=== PATIENT | female | born 1945 | race Caucasian/White ===

== ENCOUNTER 2018-09-21 12:15 | Inpatient (IN) | payer MEDICARE, OTHER ==
--- NOTE | 2018-09-21 13:07 | ED Physician Chart ---
ED Chief Complaint/HPI - Patient Information Date Seen:: 09/21/18 Time Seen:: 12:55 Chief Complaint:: increased agitation History of Present Illness:: On the transfer documented states patient has been increasingly agitated with aggressive behavior toward the staff, wondering inside the facility and with episodes of not taking medications and not eating meals and exhibiting mood swings. Patient states the large bruise on her right arm is from a blood draw 2 days ago. Allergies:: Allergies Allergy/AdvReac Type Severity Reaction Status Date / Time carbidopa Allergy Verified 09/21/18 12:22 diazepam Allergy Verified 09/21/18 12:29 haloperidol Allergy Verified 09/21/18 12:21 levodopa Allergy Verified 09/21/18 12:21 tizanidine Allergy Verified 09/21/18 12:29 zolpidem Allergy Verified 09/21/18 12:21 Vitals:: Vital Signs - 8 hr 09/21/18 12:22 Temp 97.3 F HR 85 RR 18 BP 119/87 O2 Sat % 96 Historian:: Patient Review:: Transfer documents Reviewed ED Review of Systems - Review of Systems General/Constitutional: No fever, No chills Skin: No skin lesions Head: No headache Eyes: No loss of vision ENT: No earache Neck: No neck pain, No swelling Cardio Vascular: No chest pain Pulmonary: No SOB GI: No nausea, No vomiting, No diarrhea G/U: No dysuria Musculoskeletal: No bone or joint pain, No back pain, No muscle pain Hematopoietic: No bruising Allergic/Immuno: No urticaria Neurological: No syncope, No focal symptoms, No weakness ED Past Medical History - Past Medical History Past Medical History: HTN, DM, Other (bipolar; psychosis) Family History: Heart disease, Diabetes Melitus, HTN Social History: Non Smoker, Other (formerly consumed alcohol) Surgical History: other (ligation) Psychiatricy History: Bipolar, Other (psychosis) Family Medical History - Family Member Mother History Unknown: Yes ED Physical Exam - Physical Examination General/Constitutional: Awake, Well-developed, well-nourished, Alert, No distress, GCS 15, Non-toxic appearing, Ambulatory Other Gen/Cons comments:: Alert and oriented to the correct month and year and to the approximate date Head: Atraumatic Eyes: Lids, conjuctiva normal, PERRL, EOMI Skin: Nl inspection, No rash, No skin lesions, No ecchymosis, Well hydrated, No lymphadenopathy ENMT: External ears, nose nl, Nasal exam nl, Lips, teeth, gums nl Neck: Nontender, Full ROM w/o pain, No JVD, No nuchal rigidity, No bruit, No mass, No stridor Respiratory: Nl effort/Exclusion, Clear to Auscultation, No Wheeze/Rhonchi/Rales Cardio Vascular: RRR, No murmur, gallop, rubs, NL S1 S2 GI: No tenderness/rebounding/guarding, No organomegaly, No hernia, Normal BS's, Nondistended, No mass/bruits, No McBurney tenderness : No CVA tenderness Extremities: No tenderness or effusion, Full ROM, normal strength in all extremities, No edema, Normal digits & nails Neuro/Psych: Alert/oriented, DTR's symmetric, Normal sensory exam, Normal motor strength, Judgement/insight normal, Mood normal, Normal gait, No focal deficits Misc: Normal back, No paraspinal tenderness ED Labs/Radiology/EKG Results - Lab Results Results: Abnormal Lab Results 09/21/18 09/21/18 13:20 13:20 WBC 7.1 RBC 4.71 Hgb 14.0 Hct 42.6 MCV 90.4 MCH 29.7 MCHC Differential 32.8 RDW 12.9 Plt Count 218 MPV 7.6 Neutrophils % 82.0 H Lymphocytes % 9.5 L Monocytes % 7.7 Eosinophils % 0.6 Basophils % 0.2 Sodium 139 Potassium 4.1 Chloride 103 Carbon Dioxide 27.0 Anion Gap 13.1 BUN 21 Creatinine 0.5 L Est GFR ( Amer) TNP Est GFR (Non-Af Amer) TNP BUN/Creatinine Ratio 42.0 Glucose 227 H Calcium 8.9 Total Bilirubin 0.4 AST 14 ALT 14 Alkaline Phosphatase 105 H Total Protein 6.2 Albumin 3.6 L Globulin 2.6 Albumin/Globulin Ratio 1.4 Triglycerides 94 Cholesterol 175 LDL Cholesterol Direct 112 HDL Cholesterol 53 - EKG Interpretations Rate & Rhythm: normal sinus rhythm with a rate [place]: of 75 Comments:: T wave changes in leads V1 and V2 ED Septic Shock - . Is Septic Shock (SBP<90, OR Lactate>4 mmol\L) present?: No - <6hrs of presentation: Vital Signs: Vital Signs - 8 hr 09/21/18 12:22 Temp 97.3 F HR 85 RR 18 BP 119/87 O2 Sat % 96 ED Reassessment (Disposition) - Reassessment Reassessment Condition:: Unchanged - Diagnosis Diagnosis:: Agitation; bipolar; psychosis; diabetes; Parkinson's disease - Patient Disposition Admitted to:: [facility] Admitting Medical Physician:: Tani Tolentino Admitting Psych Physician:: Tomás Waddell Condition at Disposition:: Stable, Unchanged
[2018-09-21 13:28] LABS: % BASOPHILS 0.2 % (0.0-2.0); % EOSINOPHILS 0.6 % (0.0-5.0); % LYMPHOCYTES 9.5 % (20.0-50.0); % MONOCYTES 7.7 % (2.0-10.0); HEMATOCRIT 42.6 % (41.0-60); LYMPHOCYTE ABSOLUTE 0.7 Th/cmm (1.5-3.0); MEAN CELL VOLUME 90.4 fl (81-100); MEAN CORPUSCULAR HEMOGLOBIN 29.7 pg (27.0-31.0); MEAN CORPUSCULAR HGB CONC 32.8 pg (28.0-36.0); MEAN PLATELET VOLUME 7.6 fl; MONOCYTE ABSOLUTE 0.5 Th/cmm (0.3-1.0); NEUTROPHILE ABSOLUTE 5.9 Th/cmm (1.8-8.0); PLATELET COUNT 218 Th/cmm (150-400); RED BLOOD COUNT 4.71 Mil/cmm (3.80-5.20); RED CELL DISTRIBUTION WIDTH 12.9 % (11.5-20.0); WHITE BLOOD COUNT 7.1 Th/cmm (4.8-10.8)
[2018-09-21 13:47] LABS: ALB/GLOB RATIO 1.4 (1.0-1.8); ALBUMIN 3.6 gm/dL (3.7-5.3); ALKALINE PHOSPHATASE 105 U/L (34-104); ANION GAP 13.1 (7.0-16.0); BILIRUBIN,TOTAL 0.4 mg/dL (0.3-1.0); BUN - UREA NITROGEN 21 mg/dL (7-25); CALCIUM SERUM 8.9 mg/dL (8.6-10.3); CHLORIDE 103 mEq/L (98-107); CHOLESTEROL 175 mg/dL (<200); CREATININE - SERUM 0.5 mg/dL (0.6-1.2); GLUCOSE 227 mg/dL (70-105); HDL -HIGH DENSITY LIPOPROTEIN 53 mg/dL (23-92); POTASSIUM SERUM 4.1 mEq/L (3.5-5.1); SGOT 14 U/L (13-39); SGPT/ALT 14 U/L (7-52); SODIUM SERUM 139 mEq/L (136-145); TOTAL PROTEIN,SERUM 6.2 gm/dL (6.0-8.3); TRIGLYCERIDES 94 mg/dL (<150)
[2018-09-21 15:15] VITALS: BP 124/71
[2018-09-21] MEDS ORDERED: Magnesium Hydroxide (MOM) 30 mL UDC PO PRN (15:15)
[2018-09-21] MEDS ORDERED: PRAMIPEXOLE DI HCL PO SCH (21:00)
[2018-09-21] MEDS: INSULIN ASPART SLIDING SCALE 100 UNITS/ML UNIT SUBQ SCH (21:13)
[2018-09-22] MEDS: Pantoprazole 40 mg EC Tab PO SCH ×2 (06:35→06:40)
[2018-09-22] MEDS: INSULIN ASPART SLIDING SCALE 100 UNITS/ML UNIT SUBQ SCH ×4 (06:36→20:52)
[2018-09-22] MEDS: Multivitamin Tab PO SCH (08:40)
[2018-09-22] MEDS: Ferrous Sulfate 325 MG TAB PO SCH (08:42)
[2018-09-22] MEDS ORDERED: VALPROIC ACID PO SCH (09:00)
--- NOTE | 2018-09-23 02:38 | Consultation ---
DATE OF CONSULTATION: INTERNAL MEDICINE CONSULT REFERRING MD: Dr. Dominguez. REASON FOR CONSULT: Medical management. HISTORY OF PRESENT ILLNESS: 73-year-old lady with multiple medical problems including type 2 diabetes, essential hypertension, multiple sclerosis, previous pancreatitis, anemia, history of peptic ulcer disease, Parkinson's disease, ataxia, history of colon diverticulitis, hiatal hernia, generalized muscle weakness, acid reflux disease as well as hypothyroidism, who was admitted to the [facility] given psych decompensation with increased agitation. The patient is currently sitting in a Rosmery chair and appears to be comfortable. She states that "she does not feel well.'' It appears that she points to her hands that apparently, she had blood work recently and there is a noticeable bruising, but other than that, she denies any significant issues such as fever, chills, headaches, shortness of breath, cough or phlegm production. PAST MEDICAL HISTORY: As noted above. PAST SURGERIES: Tubal ligation. FAMILY HISTORY: Likely noncontributory to this admission. SOCIAL HISTORY: No tobacco, no ETOH or illicit drug usage. She lives at [facility]. ALLERGIES: CARBIDOPA, DIAZEPAM, HALDOL, LEVODOPA, TIZANIDINE, AND ZOLDIPEM. OUTPATIENT MEDICATIONS: Glycerin p.r.n. per rectum, amlodipine 10 mg daily, baclofen 10 mg t.i.d., iron sulfate 75 mg q. day, gabapentin 300 mg b.i.d., glipizide 5 mg b.i.d., Romulus q. 8 hours p.r.n. for severe pain, insulin sliding scale per protocol, Glucophage 500 mg t.i.d., omeprazole 40 mg q. day, Zofran 4 mg p.r.n. for nausea, vomiting, Mirapex 0.125 mg t.i.d., valproic acid 250 b.i.d. REVIEW OF SYSTEMS: GENERAL: No fever or chills. No recent weight loss. CARDIOVASCULAR: No chest pain or palpitations. PULMONARY: Denies any cough, any phlegm production, no shortness of breath. GASTROINTESTINAL: No bowel habit changes. GENITOURINARY: Denies any UTI symptomatology. NEUROLOGIC: Denies any syncopal episodes, blurry vision, or headaches. PHYSICAL EXAMINATION: VITAL SIGNS: Temperature 98.6, pulse 62, respirations 19; BP 109/66 yesterday, currently is 165/64; O2 sats 97% on room air. GENERAL: Well-developed, thin female who is awake, alert and oriented x 2 and appears to be in no distress. HEAD AND NECK: Normocephalic, atraumatic. Pupils reactive to light. Extraocular movements are intact. Oropharynx is moist and clear. NECK: There is no JVD or LAD. CARDIAC: Regular rate and rhythm with distant sounds. No audible murmurs. LUNGS: Diminished at the bases, but no audible rhonchi, wheezing, or crackles. ABDOMEN: Soft, supple, nontender, nondistended, normoactive bowel sounds. EXTREMITIES: Lower extremity, there is no pedal edema. SKIN: There is some bruising noted on her left upper dorsum. NEURO: Difficult to assess given patient's condition, but cranial nerves 2-12 appear to be within normal limits. LABORATORY DATA: CBC was within normal limits. Chem-7 showed a glucose of 227, otherwise was within normal limits. LFTs essentially within normal limits. TSH 8.33. DIAGNOSTICS: EKG shows normal sinus rhythm at a rate of 75. ASSESSMENT: 1. Acute agitation/psych decompensation. 2. History of bipolar disorder. 3. Type 2 diabetes. 4. Essential hypertension. 5. History of Parkinson's disease. 6. Ataxia. 7. Previous history of hypothyroidism with an elevated TSH level. 8. Generalized muscle weakness. 9. Acid reflux disease. 10. Diverticulitis, currently asymptomatic. 11. History of peptic ulcer disease. PLAN: The patient has been admitted to [facility] for psych supportive care and treatment. The patient will be kept on her current home medications including her diabetes medications (glipizide 5 mg with meals and metformin 500 mg t.i.d.). As far as hypertension, she is on amlodipine 10 mg q. day and will be placed on clonidine p.r.n. JOB# [id number] [facility]
[2018-09-23] MEDS: Pantoprazole 40 mg EC Tab PO SCH (06:35)
[2018-09-23] MEDS: INSULIN ASPART SLIDING SCALE 100 UNITS/ML UNIT SUBQ SCH ×5 (06:35→21:22)
[2018-09-23] MEDS: Levothyroxine 0.025 Mg Tab PO SCH (06:35)
[2018-09-23] MEDS: Multivitamin Tab PO SCH (09:48)
[2018-09-23] MEDS: Ferrous Sulfate 325 MG TAB PO SCH (09:48)
[2018-09-23] MEDS: Hydrocodone/APAP 5mg/325mg Tab PO PRN (21:27)
--- NOTE | 2018-09-24 06:51 | Progress Notes ---
DATE: The patient was seen and evaluated. The patient's chart reviewed. COVERING FOR: Dr. Taylor. IDENTIFYING DATA: A 73-year-old female with a history of multiple medical comorbidities, brought in here for acute agitation, disorganized thought process. CURRENT MEDICATION REGIMEN: Includes the following: Amlodipine, baclofen, gabapentin 300 mg p.o. b.i.d., levothyroxine, metformin. Today on modo-eg-nrar evaluation, the patient is sleepy, easily awakened. Upon awaking, the patient disengaged, minimizing, does not give much information, derails. MENTAL STATUS EXAMINATION: Observed to be disorganized, confused. ASSESSMENT AND PLAN: The patient is a 73-year-old female who continues to present overwhelmed, extremely poor historian, unable to give much information with a history of dementia and behavioral disturbances. We will augment the current medication regimen with Aricept while we obtain more collateral and baseline information. JOB# [id number]
[2018-09-24] MEDS: INSULIN ASPART SLIDING SCALE 100 UNITS/ML UNIT SUBQ SCH ×4 (06:59→20:45)
[2018-09-24] MEDS: Levothyroxine 0.025 Mg Tab PO SCH (07:00)
[2018-09-24] MEDS: Pantoprazole 40 mg EC Tab PO SCH (07:00)
--- NOTE | 2018-09-24 08:09 | Psychiatric Evaluation ---
DATE OF SERVICE: 09/21/2018 PSYCHIATRIC INITIAL EVALUATION AND MENTAL STATUS EXAM Age: 73. SEX: Female. PHYSICIAN: Dr. Taylor. CHIEF COMPLAINT: Agitation and confusion. HISTORY OF PRESENT ILLNESS: The patient is a 73-year-old female who was admitted to the hospital under my care from [facility] after I received a call from the DON where informing me about patient has been extremely agitated and has been in irritable and angry mood. The patient also has not been able to follow any directions and has been more anxious and more confused. She also has not been able to calm down in spite of different interventions. PAST PSYCHIATRIC HISTORY: The patient has history of what seems to be bipolar disorder. The patient has been taking Depakene 250 mg twice a day. PAST MEDICAL HISTORY: The patient has history of noninsulin dependent diabetes mellitus and also has a history of gastroesophageal reflux disease. SOCIAL HISTORY: No known alcohol or drug use. ALLERGIES: No known allergies. MENTAL STATUS EXAMINATION: The patient appears slightly older than her stated age. Disheveled. Anxious. Flat affect. Irritable mood. Confused. Thought processes are circumstantial with flight of ideas. The patient denies any auditory or visual hallucinations or delusions. The patient denies any thoughts of suicide or homicide, but she is confused and easily agitated and easily irritable. The patient is alert, but disoriented to time, place, person and situation. Impaired immediate and recent memory is not intact, remote memory and she remembered her date. Poor insight. Poor judgment. ASSESSMENT: PRIMARY DIAGNOSIS: Bipolar disorder, mixed type, severe, with psychotic features. SECONDARY DIAGNOSIS: Dementia, moderate to severe, with psychotic features and behavioral disturbances. TREATMENT PLAN: We will monitor the patient's behavior and condition closely. We will start individual as well as milieu psychotherapy. We will monitor psychotropic medications. ESTIMATED LENGTH OF STAY: 5-7 days. THE PATIENT'S STRENGTHS AND WEAKNESSES: The patient's strength is that she has supportive staff in [facility]. Weaknesses is her poor impulse control and poor judgment. AFTER DISCHARGE PLAN: Outpatient treatment and followup. We will continue as an outpatient. CRITERIA FOR DISCHARGE: The patient will not be psychotic or agitated and will stabilize psychotropic medications and will establish outpatient treatment plans. JOB# [id number]
[2018-09-24] MEDS: Ferrous Sulfate 325 MG TAB PO SCH (09:55)
[2018-09-24] MEDS: Multivitamin Tab PO SCH (09:56)
--- NOTE | 2018-09-24 20:31 | Progress Notes ---
DATE: SUBJECTIVE: The patient was seen and evaluated. The patient's chart reviewed. Overnight nursing staff reported the patient has been disengaged. Today, on scpz-be-cldu evaluation extremely irritable, reporting "who are you" multiple times despite introducing myself as a psychiatrist, she becomes more irritable and anxious. MENTAL STATUS EXAMINATION: Anxious, irritable, agitated. PLAN: The patient had a history of dementia who will be receiving her first dose of the Aricept presents irritable, agitated. We will continue with Depakote to target the patient's ____ mood while we obtain more collateral baseline information and continue working with emergency medical technician basic for a safe disposition once the patient further stabilized. JOB# [id number]
[2018-09-25] MEDS: Pantoprazole 40 mg EC Tab PO SCH (06:32)
[2018-09-25] MEDS: Levothyroxine 0.025 Mg Tab PO SCH (06:32)
[2018-09-25] MEDS: INSULIN ASPART SLIDING SCALE 100 UNITS/ML UNIT SUBQ SCH ×4 (06:32→20:31)
[2018-09-25] MEDS: Multivitamin Tab PO SCH ×2 (08:58→09:28)
[2018-09-25] MEDS: Ferrous Sulfate 325 MG TAB PO SCH ×2 (08:58→09:28)
[2018-09-25] MEDS: MELATONIN 5 MG PO SCH (20:31)
[2018-09-25] MEDS: Hydrocodone/APAP 5mg/325mg Tab PO PRN (20:50)
--- NOTE | 2018-09-26 05:23 | Progress Notes ---
DATE: SUBJECTIVE: Chart reviewed and the patient interviewed. Also discussed the patient's condition with the staff and reviewed records and labs. The patient is still extremely delusional and extremely paranoid. The patient also is agitated. The patient was whispering at times to me and she also at times was talking to imaginary objects during interview. She also is still in irritable mood and she is still delusional. ASSESSMENT: The patient is still psychotic. TREATMENT PLAN: We will monitor behavior and condition closely. Also continue working on her irritability and also her psychosis. Also, questionable if the patient is compliant with taking her medication. We will give the patient Depakote on Depakene form for better compliance. [facility]# [id number]
[2018-09-26] MEDS: Pantoprazole 40 mg EC Tab PO SCH (06:38)
[2018-09-26] MEDS: INSULIN ASPART SLIDING SCALE 100 UNITS/ML UNIT SUBQ SCH ×4 (06:38→20:36)
[2018-09-26] MEDS: Levothyroxine 0.025 Mg Tab PO SCH (06:38)
[2018-09-26] MEDS: Multivitamin Tab PO SCH (08:28)
[2018-09-26] MEDS: Ferrous Sulfate 325 MG TAB PO SCH (08:30)
[2018-09-26] MEDS: MELATONIN 5 MG PO SCH (20:37)
--- NOTE | 2018-09-26 22:40 | Progress Notes ---
DATE: SUBJECTIVE: Chart reviewed and the patient interviewed. Also discussed the patient's condition with the staff and reviewed records. The patient is still actively hallucinating and delusional. The patient also was whispering to me in a paranoid way and also was not able to carry on any coherent conversation. The patient also is paranoid and easily agitated and getting aggressive. Otherwise, the patient was questionable taking her medications and she has not been taking medications. Discussed with the patient the importance of taking psychotropic medication and hopefully, we will start to take medications. At the same time, we will continue close observation and will continue to follow up. JOB# [id number]
[2018-09-27] MEDS: INSULIN ASPART SLIDING SCALE 100 UNITS/ML UNIT SUBQ SCH ×4 (06:36→22:11)
[2018-09-27] MEDS: Levothyroxine 0.025 Mg Tab PO SCH (06:37)
[2018-09-27] MEDS: Pantoprazole 40 mg EC Tab PO SCH (06:37)
[2018-09-27] MEDS: Multivitamin Tab PO SCH (08:39)
[2018-09-27] MEDS: Ferrous Sulfate 325 MG TAB PO SCH (08:39)
--- NOTE | 2018-09-27 19:40 | Progress Notes ---
DATE: 09/27/2018 SUBJECTIVE: Chart reviewed and the patient interviewed. Also discussed the patient's condition with the staff and reviewed records and labs. The patient is still psychotic and responding. She also is still easily agitated, but seems to be slightly less than before. The patient also is still talking to herself and whispering and looks like she is communicating with imaginary people. She also is still guarded and does not want to talk about her hallucinations or psychosis. She also still needs lots of redirections. Otherwise, the patient is compliant with taking her medications with no side effects of medications. ASSESSMENT: The patient is still psychotic and needs lots of redirections. TREATMENT PLAN: We will increase Seroquel to 37.5 mg twice a day and 37.5 mg at bedtime and will continue to follow up closely. JOB# [id number]
[2018-09-27] MEDS: MELATONIN 5 MG PO SCH (21:39)
[2018-09-28] MEDS: Levothyroxine 0.025 Mg Tab PO SCH (07:08)
[2018-09-28] MEDS: INSULIN ASPART SLIDING SCALE 100 UNITS/ML UNIT SUBQ SCH ×4 (07:08→21:49)
[2018-09-28] MEDS: Pantoprazole 40 mg EC Tab PO SCH (07:08)
[2018-09-28] MEDS: Ferrous Sulfate 325 MG TAB PO SCH (09:16)
[2018-09-28] MEDS: Multivitamin Tab PO SCH (09:17)
[2018-09-28] MEDS: Insulin Detemir 100 units/mL 10mL Vial SUBQ SCH (12:50)
[2018-09-28] MEDS: Hydrocodone/APAP 5mg/325mg Tab PO PRN (17:46)
[2018-09-28] MEDS: MELATONIN 5 MG PO SCH (21:48)
[2018-09-29] MEDS: Levothyroxine 0.025 Mg Tab PO SCH (06:54)
[2018-09-29] MEDS: Pantoprazole 40 mg EC Tab PO SCH (06:54)
[2018-09-29] MEDS: INSULIN ASPART SLIDING SCALE 100 UNITS/ML UNIT SUBQ SCH ×4 (06:56→21:00)
[2018-09-29] MEDS: Multivitamin Tab PO SCH (09:28)
[2018-09-29] MEDS: Insulin Detemir 100 units/mL 10mL Vial SUBQ SCH (09:29)
[2018-09-29] MEDS: Ferrous Sulfate 325 MG TAB PO SCH (09:29)
[2018-09-29] MEDS: MELATONIN 5 MG PO SCH (21:05)
[2018-09-30] MEDS: INSULIN ASPART SLIDING SCALE 100 UNITS/ML UNIT SUBQ SCH ×4 (06:39→21:24)
[2018-09-30] MEDS: Levothyroxine 0.025 Mg Tab PO SCH (06:39)
[2018-09-30] MEDS: Pantoprazole 40 mg EC Tab PO SCH (06:40)
[2018-09-30] MEDS: Multivitamin Tab PO SCH (09:13)
[2018-09-30] MEDS: Ferrous Sulfate 325 MG TAB PO SCH (09:13)
[2018-09-30] MEDS: Insulin Detemir 100 units/mL 10mL Vial SUBQ SCH (09:14)
--- NOTE | 2018-09-30 18:23 | Progress Notes ---
DATE: 09/30/2018 SUBJECTIVE: The patient coming into the hospital, 73-year-old female coming in from a [facility]. The patient is agitated, irritable, angry, not following any directions, history of what appears to be bipolar. The patient does not know where she is. She states that she is coming from "[place]." She does not know if she is taking any medications. She remains impulsive, unpredictable, withdrawn, mostly keeps to herself, still remains easily agitated. It seems that she may be responding to internal stimuli. ASSESSMENT: The patient remains psychotic, still responding to internal stimuli, unpredictable behaviors. Given recent dose increase of Seroquel, will continue at current dosing, monitor for side effects. JOB# [id number]
[2018-09-30] MEDS: MELATONIN 5 MG PO SCH (21:15)
[2018-10-01] MEDS: INSULIN ASPART SLIDING SCALE 100 UNITS/ML UNIT SUBQ SCH ×4 (06:44→20:40)
[2018-10-01] MEDS: Levothyroxine 0.025 Mg Tab PO SCH (06:50)
[2018-10-01] MEDS: Pantoprazole 40 mg EC Tab PO SCH (06:50)
[2018-10-01] MEDS: Multivitamin Tab PO SCH (10:11)
[2018-10-01] MEDS: Ferrous Sulfate 325 MG TAB PO SCH (10:12)
[2018-10-01] MEDS: Insulin Detemir 100 units/mL 10mL Vial SUBQ SCH ×2 (10:13→20:38)
--- NOTE | 2018-10-01 17:03 | Progress Notes ---
DATE: 10/01/2018 SUBJECTIVE: The patient is currently in the hospital, coming in from [facility]. She is really aggressive right now, responding to internal stimuli, Ativan not helping, requiring emergency IM this morning. Loud, screaming, yelling, not making any sense, confused, and difficult to redirect. ASSESSMENT: The patient aggressive currently in the observation room, yelling to sell screaming to self, wheeling herself around. We will give Zyprexa IM given her allergy status. PLAN: We will increase dosing of Seroquel as well. JOB# [id number]
[2018-10-01 18:24] LABS: URINE SOURCE CLEAN C
[2018-10-01 18:28] LABS: URINE BILIRUBIN NEGATIVE (NEGATIVE); URINE BLOOD SMALL (NEGATIVE); URINE GLUCOSE (UA) >=1000 mg/dL (NEGATIVE); URINE KETONE TRACE mg/dL (NEGATIVE); URINE LEUKOCYTE ESTERASE NEGATIVE (NEGATIVE); URINE MICROSCOPIC INDICATED? YES; URINE NITRATE NEGATIVE (NEGATIVE); URINE PH 6.5 (4.6 - 8.0); URINE PROTEIN NEGATIVE (NEGATIVE); URINE UROBILINOGEN 0.2 E.U./dL (0.2 - 1.0)
[2018-10-01 18:35] LABS: URINE COLOR YELLOW
[2018-10-01 18:36] LABS: URINE CLARITY CLEAR (CLEAR)
[2018-10-01 18:40] LABS: URINE BACTERIA FEW /hpf (NONE SEEN); URINE EPITHELIAL CELLS FEW /lpf (FEW); URINE RBC NONE SEEN /hpf (0-5)
--- NOTE | 2018-10-01 19:58 | Progress Notes ---
DATE: 09/29/2018 DATE OF SERVICE: 09/29/2018. SUBJECTIVE: Chart reviewed and the patient interviewed. Also discussed the patient's condition with the staff and reviewed records and labs. The patient is still in angry and in irritable mood. The patient also is still easily agitated and easily irritable. She also is interacting minimally with peers and with others and wants to be left alone, but at the same time, she is severely agitated and in angry mood. ASSESSMENT: The patient still can be dangerous to others. TREATMENT PLAN: Continue monitoring her behavior and her condition closely. Also, continue adjusting psychotropic medications and yesterday, Seroquel was increased. We will continue same dose of Seroquel and Depakote. Also, we will get Depakote blood level on 10/02/2018. JOB# [id number]
--- NOTE | 2018-10-01 20:35 | Progress Notes ---
DATE: 09/28/2018 SUBJECTIVE: Chart reviewed and the patient interviewed. Also discussed the patient's condition with the staff and reviewed the records and labs. The patient took her medications and the patient seems to be more compliant with taking her medications. She is still having episodes of throwing her clothes and linens outside and also taking off her clothes. The patient also is still easily irritable and easily agitated. Otherwise, the patient is more compliant with taking medications. ASSESSMENT: The patient is still agitated and in irritable mood. TREATMENT PLAN: We will continue to monitor her behavior and her condition closely. Also, increase Seroquel to 50 mg twice a day and 75 mg at bedtime and will increase Depakote to 500 mg twice a day and we will continue to follow up. JOB# [id number]
[2018-10-01] MEDS: MELATONIN 5 MG PO SCH (20:43)
[2018-10-02] MEDS: INSULIN ASPART SLIDING SCALE 100 UNITS/ML UNIT SUBQ SCH ×4 (06:30→20:54)
[2018-10-02] MEDS: Levothyroxine 0.025 Mg Tab PO SCH (06:36)
[2018-10-02] MEDS: Pantoprazole 40 mg EC Tab PO SCH (06:37)
[2018-10-02] MEDS: Ferrous Sulfate 325 MG TAB PO SCH (08:53)
[2018-10-02] MEDS: Multivitamin Tab PO SCH (08:56)
[2018-10-02] MEDS: MELATONIN 5 MG PO SCH (20:53)
[2018-10-02] MEDS: Insulin Detemir 100 units/mL 10mL Vial SUBQ SCH (20:55)
--- NOTE | 2018-10-03 00:55 | Progress Notes ---
DATE: 10/02/2018 Case was discussed with staff of the patient, reviewed records. Covering for Dr. Taylor. This is a 73-year-old female who was admitted on 09/21/2018, because of coming in from [facility]. The patient has been extremely agitated, has been irritable, angry, has not been able to follow any direction, has been more anxious and more confused, has not been able to calm down in spite of different interventions with a history of what seems to be bipolar disorder. The patient continues to be irritable, aggressive, responding to internal stimuli, requiring emergency medication, confused, not making sense. She has been compliant with the medication with no side effects, no sedation, no nausea, and no extrapyramidal symptoms. She is on Aricept 5 mg at bedtime. We will continue to work with the patient in group therapy, milieu therapy, and adjust the medication as needed. JOB# [id number]
[2018-10-03] MEDS: Pantoprazole 40 mg EC Tab PO SCH (06:29)
[2018-10-03] MEDS: Levothyroxine 0.025 Mg Tab PO SCH (06:29)
[2018-10-03] MEDS: INSULIN ASPART SLIDING SCALE 100 UNITS/ML UNIT SUBQ SCH ×5 (06:42→20:33)
[2018-10-03] MEDS: Ferrous Sulfate 325 MG TAB PO SCH (09:14)
[2018-10-03] MEDS: Multivitamin Tab PO SCH (09:14)
--- NOTE | 2018-10-03 20:14 | Progress Notes ---
DATE: 10/03/2018 SUMMARY: Case is discussed with staff of the patient and reviewed records. The patient continues to be irritable, angry, easily agitated, and at times, unable to follow staff direction. She is confused, unable to make safe plan for her self-care. She continues to have episodes of irritability and agitation. She has been compliant with the medication with no side effects. She is also diabetic. Her Seroquel dose was increased in the last 2 days to 100 mg at bedtime and she is on 50 mg twice a day. We will continue to work with the patient in group therapy, milieu therapy, and adjust medication as needed. JOB# [id number]
[2018-10-03] MEDS: Insulin Detemir 100 units/mL 10mL Vial SUBQ SCH (20:33)
[2018-10-03] MEDS: MELATONIN 5 MG PO SCH ×2 (20:33→22:22)
[2018-10-04] MEDS: Levothyroxine 0.025 Mg Tab PO SCH (06:32)
[2018-10-04] MEDS: Pantoprazole 40 mg EC Tab PO SCH (06:32)
[2018-10-04] MEDS: INSULIN ASPART SLIDING SCALE 100 UNITS/ML UNIT SUBQ SCH ×4 (06:36→21:27)
[2018-10-04] MEDS: Multivitamin Tab PO SCH (08:22)
[2018-10-04] MEDS: Ferrous Sulfate 325 MG TAB PO SCH (08:22)
[2018-10-04] MEDS: MELATONIN 5 MG PO SCH (21:22)
[2018-10-04] MEDS: Insulin Detemir 100 units/mL 10mL Vial SUBQ SCH (21:28)
[2018-10-05] MEDS: INSULIN ASPART SLIDING SCALE 100 UNITS/ML UNIT SUBQ SCH ×4 (06:31→21:15)
[2018-10-05] MEDS: Levothyroxine 0.025 Mg Tab PO SCH (06:35)
[2018-10-05] MEDS: Pantoprazole 40 mg EC Tab PO SCH (06:35)
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
[2018-10-05] MEDS: Ferrous Sulfate 325 MG TAB PO SCH (09:07)
[2018-10-05] MEDS: Multivitamin Tab PO SCH (09:07)
[2018-10-05] MEDS: MELATONIN 5 MG PO SCH (21:02)
[2018-10-05] MEDS: Insulin Detemir 100 units/mL 10mL Vial SUBQ SCH (21:15)
--- NOTE | 2018-10-06 01:57 | Progress Notes ---
DATE: 10/05/2018 SUBJECTIVE: Chart reviewed and the patient interviewed. Also, discussed the patient's condition with the staff and reviewed records and labs. The patient is still paranoid and still confused. The patient also is still guarded and is impulsive. The patient also is still stealing objects from nurses' station or other times taking it by force and hiding it in between her clothes or hoarding it in her room. She also is still unable to follow direction easily and staff has to redirect her at all the time. The patient also still gets aggressive when staff tried to redirect her, and yesterday, the patient had to take emergency medications in order to calm her down. ASSESSMENT: The patient is still aggressive and agitated. TREATMENT PLAN: Continue to monitor her behavior closely. Also, we will increase Seroquel to 150 mg twice a day and 200 mg at bedtime. Also, Depakote blood level that was done on 10/02/2018 came back to be 44.5, which is slightly below therapeutic level, but at the same time, we will continue monitoring behavior and might increase Depakote if behavior continues. Today, I increased Seroquel. JOB# [id number]
[2018-10-06] MEDS: Pantoprazole 40 mg EC Tab PO SCH (06:35)
[2018-10-06] MEDS: Levothyroxine 0.025 Mg Tab PO SCH (06:35)
[2018-10-06] MEDS: INSULIN ASPART SLIDING SCALE 100 UNITS/ML UNIT SUBQ SCH ×5 (06:58→20:36)
[2018-10-06] MEDS ORDERED: Haloperidol Lactate 5 mg/mL 1mL Vial ONE (07:33)
[2018-10-06] MEDS ORDERED: Haloperidol Lactate 5 mg/mL 1mL Vial IM ONE (07:56)
[2018-10-06] MEDS: Ferrous Sulfate 325 MG TAB PO SCH (11:03)
[2018-10-06] MEDS: Multivitamin Tab PO SCH (11:04)
[2018-10-06] MEDS: MELATONIN 5 MG PO SCH (20:35)
[2018-10-06] MEDS: Insulin Detemir 100 units/mL 10mL Vial SUBQ SCH (20:37)
[2018-10-07] MEDS: INSULIN ASPART SLIDING SCALE 100 UNITS/ML UNIT SUBQ SCH ×4 (06:31→21:52)
[2018-10-07] MEDS: Levothyroxine 0.025 Mg Tab PO SCH (06:32)
[2018-10-07] MEDS: Pantoprazole 40 mg EC Tab PO SCH (06:32)
[2018-10-07] MEDS: Ferrous Sulfate 325 MG TAB PO SCH (08:49)
[2018-10-07] MEDS: Multivitamin Tab PO SCH (08:51)
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
[2018-10-07] MEDS: MELATONIN 5 MG PO SCH (21:08)
[2018-10-07] MEDS: Insulin Detemir 100 units/mL 10mL Vial SUBQ SCH (21:52)
[2018-10-08] MEDS: Maalox 30 mL Cup PO PRN (06:35)
[2018-10-08] MEDS: Pantoprazole 40 mg EC Tab PO SCH (06:36)
[2018-10-08] MEDS: Levothyroxine 0.025 Mg Tab PO SCH (06:36)
[2018-10-08] MEDS: INSULIN ASPART SLIDING SCALE 100 UNITS/ML UNIT SUBQ SCH ×4 (06:53→21:37)
--- NOTE | 2018-10-08 07:50 | Progress Notes ---
DATE: 10/07/2018 SUBJECTIVE: Chart reviewed and the patient interviewed. Also discussed the patient's condition with the staff and reviewed records and labs. The patient is still extremely agitated and she is pulling posters from the wall and picking trash from other people's rooms. The patient also is putting heavy lotion all over her body and her body looks white from the lotion that she is putting on her face. She also is still impulsive and she is still pushing other patients and also yesterday she refused morning medications. She also was extremely agitated and she was given Haldol ____ and Benadryl on emergency basis. ASSESSMENT: The patient is still psychotic and agitated. TREATMENT PLAN: Continue monitoring her behavior and her condition closely. Also, we will increase Seroquel to 200 mg twice a day and 300 mg at bedtime and we will continue to follow up closely. [facility]# [id number]
[2018-10-08] MEDS: Ferrous Sulfate 325 MG TAB PO SCH (09:20)
[2018-10-08] MEDS: Multivitamin Tab PO SCH (09:20)
[2018-10-08] MEDS: MELATONIN 5 MG PO SCH (21:14)
[2018-10-08] MEDS: Insulin Detemir 100 units/mL 10mL Vial SUBQ SCH (21:35)
--- NOTE | 2018-10-09 05:50 | Progress Notes ---
DATE: SUBJECTIVE: Chart reviewed and the patient interviewed. Also discussed the patient's condition with the staff and reviewed records and labs. The patient continued to be agitated, but seems to be slightly calmer than before. She is still acting bizarre in the unit and needs lots of redirections. The patient also is still intrusive to others and has episodes of irritability and pushing others, but not as much. The patient also is compliant with taking medications with no side effects of medications. ASSESSMENT: The patient seems to be less agitated and less irritable. TREATMENT PLAN: We will continue to monitor her behavior and her condition closely. Also, continue adjusting psychotropic medications and work on behavioral modifications. Also, working on placement. JOB# [id number]
[2018-10-09] MEDS: Levothyroxine 0.025 Mg Tab PO SCH (06:41)
[2018-10-09] MEDS: Pantoprazole 40 mg EC Tab PO SCH (06:41)
[2018-10-09] MEDS: INSULIN ASPART SLIDING SCALE 100 UNITS/ML UNIT SUBQ SCH ×4 (06:47→21:41)
[2018-10-09] MEDS: Multivitamin Tab PO SCH (09:11)
[2018-10-09] MEDS: Ferrous Sulfate 325 MG TAB PO SCH (09:11)
[2018-10-09] MEDS: OLANZapine 5 mg Oral Disintegrating Tab PO SCH ×2 (09:13→18:47)
--- NOTE | 2018-10-09 09:16 | Progress Notes ---
DATE: 10/09/2018 Chart reviewed and the patient interviewed. Also discussed the patient's condition with the staff and reviewed records and labs. The patient is still in angry and in irritable mood. The patient also is still suspicious and is paranoid and impulsive. The patient also earlier today through paper clip towards one of the nurses. She also still has bizarre behavior and the patient is getting into other patient's rooms and stealing clothes and then bring it to her room and wear it. She has been changing her clothes every half hour according to staff. The patient also still needs lots of redirections and she still gets agitated when staff redirected her. Otherwise, the patient is compliant with taking medications with no side effect of medications. ASSESSMENT: The patient is still agitated and in irritable mood and needs close monitoring. TREATMENT PLAN: Seroquel was increased to 200 mg twice a day and 300 mg at bedtime, yet she is still agitated and it seems that Seroquel has not been helping her much. She also taking Depakote in a dose of 1300 mg every day, but also still have mood swings. Depakote level that was done 10/02/2018 was 44.5 and will repeat Depakote blood level today. She also is taking Aricept and gabapentin. We will increase gabapentin 200 mg 3 times a day. Also, we will gradually change Seroquel to Zyprexa and we will start the patient on Zyprexa 5 mg twice a day and will decrease Seroquel to 800 mg twice a day and will start cross titrating Zyprexa and Seroquel. Also, was able to give Seroquel in a dose of 200 mg at bedtime only. Also, continue to work on her severe agitation and on behavioral modification. JOB# [id number]
[2018-10-09] MEDS: Insulin Detemir 100 units/mL 10mL Vial SUBQ SCH (21:41)
[2018-10-09] MEDS: MELATONIN 5 MG PO SCH (21:45)
[2018-10-09] MEDS: Triamcinolone Acet 0.5% Cream 15 gm TP PRN (22:09)
[2018-10-10] MEDS: Pantoprazole 40 mg EC Tab PO SCH (06:31)
[2018-10-10] MEDS: Levothyroxine 0.025 Mg Tab PO SCH (06:31)
[2018-10-10] MEDS: INSULIN ASPART SLIDING SCALE 100 UNITS/ML UNIT SUBQ SCH ×4 (06:32→20:32)
[2018-10-10] MEDS: Multivitamin Tab PO SCH (11:42)
[2018-10-10] MEDS: Ferrous Sulfate 325 MG TAB PO SCH (11:42)
[2018-10-10] MEDS: OLANZapine 5 mg Oral Disintegrating Tab PO SCH ×2 (11:43→18:30)
[2018-10-10] MEDS: MELATONIN 5 MG PO SCH (20:32)
[2018-10-10] MEDS: Insulin Detemir 100 units/mL 10mL Vial SUBQ SCH (20:32)
[2018-10-11] MEDS: INSULIN ASPART SLIDING SCALE 100 UNITS/ML UNIT SUBQ SCH ×5 (06:49→21:42)
[2018-10-11] MEDS: Pantoprazole 40 mg EC Tab PO SCH (06:50)
[2018-10-11] MEDS: Levothyroxine 0.025 Mg Tab PO SCH (06:50)
[2018-10-11] MEDS: Ferrous Sulfate 325 MG TAB PO SCH (09:08)
[2018-10-11] MEDS: Multivitamin Tab PO SCH (09:09)
[2018-10-11] MEDS: Triamcinolone Acet 0.5% Cream 15 gm TP PRN (09:10)
[2018-10-11] MEDS: OLANZapine 5 mg Oral Disintegrating Tab PO SCH ×3 (09:11→17:05)
--- NOTE | 2018-10-11 11:54 | Progress Notes ---
DATE: 10/10/2018 SUBJECTIVE: Chart reviewed and the patient interviewed. Also discussed the patient's condition with the staff and reviewed the records and labs. The patient is still easily agitated and easily irritable, although today, she seems to be slightly calmer than before and she seems to be slightly sedated. The patient also is still restless and is still having severe mood swings. The patient also is still hoarding, although it seems to be slightly less than before and entering into other patient's rooms seems to be less. She is also compliant with taking her medications with no side effects. ASSESSMENT: The patient is still depressed and is still agitated and needs close monitoring. TREATMENT PLAN: I increased her medications yesterday. Continue same dose. Also, continue working on behavioral modification and on discharge plans. JOB# [id number]
--- NOTE | 2018-10-11 21:01 | Progress Notes ---
DATE: 10/11/2018 SUBJECTIVE: Chart reviewed and the patient interviewed. Also, discussed the patient's condition with the staff and reviewed records and labs. The patient is still demanding and is still easily agitated. The patient also is confused and she is in irritable and angry mood. The patient also is still suspicious and is still paranoid. On the other hand behavior problems is dress and her going into other patient's rooms and stealing their clothes and belonging seems to be less than before. Also, slightly easier to follow directions. ASSESSMENT: The patient is still psychotic, but seems to be less and showing improvement. TREATMENT PLAN: Continue current medications and continue monitoring her behavior closely and continue to work on behavioral modification and her irritability. JOB# [id number]
[2018-10-11] MEDS: MELATONIN 5 MG PO SCH (21:37)
[2018-10-11] MEDS: Insulin Detemir 100 units/mL 10mL Vial SUBQ SCH (21:42)
[2018-10-12] MEDS: Pantoprazole 40 mg EC Tab PO SCH (06:48)
[2018-10-12] MEDS: Levothyroxine 0.025 Mg Tab PO SCH (06:48)
[2018-10-12] MEDS: INSULIN ASPART SLIDING SCALE 100 UNITS/ML UNIT SUBQ SCH ×4 (06:48→20:47)
[2018-10-12] MEDS: Multivitamin Tab PO SCH (09:19)
[2018-10-12] MEDS: Ferrous Sulfate 325 MG TAB PO SCH (09:19)
[2018-10-12] MEDS: OLANZapine 5 mg Oral Disintegrating Tab PO SCH (09:20)
--- NOTE | 2018-10-12 13:48 | Internal Medicine Prog Note ---
Internal Medicine Subjective - Subjective Service Date: 10/12/18 Patient is:: asleep Per staff patient has:: no adverse event Internal Medicine Objective - Results Result Diagrams: 09/21/18 13:20 09/21/18 13:20 Recent Labs: Laboratory Last Values WBC 7.1 Th/cmm (4.8-10.8) 09/21/18 13:20 RBC 4.71 Mil/cmm (3.80-5.20) 09/21/18 13:20 Hgb 14.0 gm/dL (12-16) 09/21/18 13:20 Hct 42.6 % (41.0-60) 09/21/18 13:20 MCV 90.4 fl (81-100) 09/21/18 13:20 MCH 29.7 pg (27.0-31.0) 09/21/18 13:20 MCHC Differential 32.8 pg (28.0-36.0) 09/21/18 13:20 RDW 12.9 % (11.5-20.0) 09/21/18 13:20 Plt Count 218 Th/cmm (150-400) 09/21/18 13:20 MPV 7.6 fl 09/21/18 13:20 Neutrophils % 82.0 % (40.0-80.0) H 09/21/18 13:20 Lymphocytes % 9.5 % (20.0-50.0) L 09/21/18 13:20 Monocytes % 7.7 % (2.0-10.0) 09/21/18 13:20 Eosinophils % 0.6 % (0.0-5.0) 09/21/18 13:20 Basophils % 0.2 % (0.0-2.0) 09/21/18 13:20 Sodium 139 mEq/L (136-145) 09/21/18 13:20 Potassium 4.1 mEq/L (3.5-5.1) 09/21/18 13:20 Chloride 103 mEq/L (98-107) 09/21/18 13:20 Carbon Dioxide 27.0 mEq/L (21.0-31.0) 09/21/18 13:20 Anion Gap 13.1 (7.0-16.0) 09/21/18 13:20 BUN 21 mg/dL (7-25) 09/21/18 13:20 Creatinine 0.5 mg/dL (0.6-1.2) L 09/21/18 13:20 Est GFR ( Amer) TNP 09/21/18 13:20 Est GFR (Non-Af Amer) TNP 09/21/18 13:20 BUN/Creatinine Ratio 42.0 09/21/18 13:20 Glucose 227 mg/dL (70-105) H 09/21/18 13:20 POC Glucose 184 MG/DL (70 - 105) H 10/12/18 11:52 Calcium 8.9 mg/dL (8.6-10.3) 09/21/18 13:20 Total Bilirubin 0.4 mg/dL (0.3-1.0) 09/21/18 13:20 AST 14 U/L (13-39) 09/21/18 13:20 ALT 14 U/L (7-52) 09/21/18 13:20 Alkaline Phosphatase 105 U/L (34-104) H 09/21/18 13:20 Total Protein 6.2 gm/dL (6.0-8.3) 09/21/18 13:20 Albumin 3.6 gm/dL (3.7-5.3) L 09/21/18 13:20 Globulin 2.6 gm/dL 09/21/18 13:20 Albumin/Globulin Ratio 1.4 (1.0-1.8) 09/21/18 13:20 Triglycerides 94 mg/dL (<150) 09/21/18 13:20 Cholesterol 175 mg/dL (<200) 09/21/18 13:20 LDL Cholesterol Direct 112 mg/dL (75-193) 09/21/18 13:20 HDL Cholesterol 53 mg/dL (23-92) 09/21/18 13:20 TSH 8.33 uIU/ml (0.34-5.60) H 09/21/18 13:20 Urine Source CLEAN C 10/01/18 16:55 Urine Color YELLOW 10/01/18 16:55 Urine Clarity CLEAR (CLEAR) 10/01/18 16:55 Urine pH 6.5 (4.6 - 8.0) 10/01/18 16:55 Ur Specific [place] 1.015 (1.005-1.030) 10/01/18 16:55 Urine Protein NEGATIVE mg/dL (NEGATIVE) 10/01/18 16:55 Urine Glucose (UA) >=1000 mg/dL (NEGATIVE) H 10/01/18 16:55 Urine Ketones TRACE mg/dL (NEGATIVE) 10/01/18 16:55 Urine Blood SMALL (NEGATIVE) H 10/01/18 16:55 Urine Nitrate NEGATIVE (NEGATIVE) 10/01/18 16:55 Urine Bilirubin NEGATIVE (NEGATIVE) 10/01/18 16:55 Urine Urobilinogen 0.2 E.U./dL (0.2 - 1.0) 10/01/18 16:55 Ur Leukocyte Esterase NEGATIVE (NEGATIVE) 10/01/18 16:55 Urine RBC NONE SEEN /hpf (0-5) 10/01/18 16:55 Urine WBC 2-5 /hpf (0-5) 10/01/18 16:55 Ur Epithelial Cells FEW /lpf (FEW) 10/01/18 16:55 Urine Bacteria FEW /hpf (NONE SEEN) 10/01/18 16:55 Valproic Acid 61.5 ug/mL (50.0-100.0) 10/09/18 07:30 RPR NONREACTIVE (NONREACTIVE) 09/21/18 13:30 - Physical Exam Vitals and I&O: Vital Signs Temp 98 F 10/12/18 06:33 Pulse 70 10/12/18 09:19 Resp 20 10/12/18 06:33 BP 123/67 10/12/18 09:19 Pulse Ox 96 10/12/18 06:33 Intake & Output 10/11/18 10/12/18 10/12/18 18:59 06:59 18:59 Intake Total 120 Balance 120 Intake: Oral 120 Other: # Voids 3 Active Medications: Current Medications Acetaminophen (Tylenol) 650 mg PO Q4HR PRN PRN Reason: Mild Pain / Temp above 100 Stop: 11/20/18 15:14 Last Admin: 10/07/18 03:23 Dose: 650 mg Al Hydrox/Mg Hydrox/Simethicone (Maalox) 30 ml PO Q4HR PRN PRN Reason: GI DISTRESS Stop: 11/20/18 15:14 Last Admin: 10/08/18 06:35 Dose: 30 ml Amlodipine Besylate (Norvasc) 10 mg PO DAILY [place] Stop: 11/21/18 10:59 Last Admin: 10/12/18 09:19 Dose: 10 mg Baclofen (Lioresal) 10 mg PO TID [facility] Stop: 11/20/18 20:59 Last Admin: 10/12/18 09:18 Dose: 10 mg Donepezil HCl (Aricept) 10 mg PO DAILY [facility] Stop: 12/03/18 08:59 Last Admin: 10/12/18 09:23 Dose: Not Given Ferrous Sulfate (Iron) 325 mg PO DAILY [facility] Stop: 11/21/18 08:59 Last Admin: 10/12/18 09:19 Dose: 325 mg Gabapentin (Neurontin) 300 mg PO TID [facility] Stop: 12/08/18 08:59 Last Admin: 10/12/18 09:18 Dose: 300 mg Glipizide (Glucotrol) 10 mg PO BID [facility] Stop: 11/23/18 16:59 Last Admin: 10/12/18 09:18 Dose: 10 mg Insulin Aspart (Novolog Insulin Sliding Scale) 0 units SUBQ ACHS [facility]; Protocol Stop: 11/20/18 20:59 Last Admin: 10/12/18 12:08 Dose: 3 units Insulin Detemir (Levemir Insulin) 12 units SUBQ [facility]; Protocol Stop: 11/30/18 20:59 Last Admin: 10/11/18 21:42 Dose: Not Given Levothyroxine Sodium (Synthroid) 0.025 mg PO QDAC [facility] Stop: 11/22/18 07:29 Last Admin: 10/12/18 06:48 Dose: 0.025 mg Lorazepam (Ativan) 0.5 mg PO Q4HR PRN; Protocol PRN Reason: Agitation Stop: 10/24/18 00:23 Last Admin: 10/12/18 09:22 Dose: 0.5 mg Magnesium Hydroxide (Milk Of Magnesia) 30 ml PO HS PRN PRN Reason: Constipation Metformin HCl (Glucophage) 1,000 mg PO BID [facility] Stop: 11/26/18 09:59 Last Admin: 10/12/18 09:18 Dose: 1,000 mg Multivitamins/Vitamin C (Theragran) 1 tab PO DAILY [facility] Stop: 11/21/18 08:59 Last Admin: 10/12/18 09:19 Dose: 1 tab Ondansetron HCl (Zofran Odt) 4 mg PO TID [facility] Stop: 11/20/18 20:59 Last Admin: 10/12/18 09:19 Dose: 4 mg Pantoprazole Sodium (Protonix) 40 mg PO QDAC [facility] Stop: 11/21/18 07:29 Last Admin: 10/12/18 06:48 Dose: 40 mg Patient Own Med- (Melatonin 5mg Tab) 1 PO HS [facility] Stop: 11/24/18 20:59 Last Admin: 10/11/18 21:37 Dose: 1 Pramipexole Dihydrochloride (Mirapex) 0.125 mg PO TID [facility] Stop: 11/21/18 08:59 Last Admin: 10/12/18 09:19 Dose: 0.125 mg Quetiapine Fumarate (Seroquel) 200 mg PO HS [facility] Stop: 12/08/18 20:59 Last Admin: 10/11/18 21:38 Dose: 200 mg Quetiapine Fumarate (Seroquel) 100 mg PO BID [facility] Stop: 12/08/18 08:59 Last Admin: 10/12/18 09:19 Dose: 100 mg Triamcinolone Acetonide (Kenalog 0.5%) 1 appl TP BID PRN PRN Reason: Rash Stop: 12/08/18 11:19 Last Admin: 10/11/18 09:10 Dose: 1 appl Valproate Sodium (Depakene) 500 mg PO TID [facility]; Protocol Stop: 12/03/18 08:59 Last Admin: 10/12/18 09:22 Dose: Not Given General: demented HEENT: NC/AT, PERRLA, EOMI Neck: Supple, No JVD Lungs: CTAB Cardiovascular: RRR, with murmur Abdomen: soft, non-tender, positive bowel sound Neurological: no change Internal Medicine Assmt/Plan - Assessment Assessment: 1. ACUTE PSYCH DECOMPENSATION 2. HISTORY OD DEMENTIA WITH BEHAVIORAL D/O 3. HISTORY OF PARKINSON'S DISEASE 4. DM-2 5. HX OF ESSENTIAL HTN 6. ATAXIA 7. HX OF HYPOTHYROIDISM 8. HX OF GERD - Plan Plan: CONT WITH CURRENT INPT CARE AND MGT CONT WITH MEDS SCHEDULED CONT WITH GLIPIZIDE/METFORMIN/DETEMIR CONT WITH AMLODIPINE CONT WITH ARICEPT CONT WITH LEVOTHYROXINE CONT WITH PPI NEEDED Nutritional Asmnt/Malnutr-PDOC - Dietary Evaluation Malnutrition Findings (Please click <Entered> for more info): Nutritional Asmnt/Malnutrition Start: 09/22/18 14: 15 Text: Status: Complete Freq: Protocol: Document 09/22/18 14:17 [email or web address] (Rec: 09/22/18 14:24 [email or web address] TAM) Nutritional Asmnt/Malnutrition Patient General Information Nutritional Screening High Risk Diagnosis agitation Pertinent Medical Hx/Surgical Hx HTN, DM, bipolar, psychosis Subjective Information Glucose 227 at admission noted . Pt was seen sitting in adele chair in the dining room at time of visit, confused but able to answer questions. Pt said she was hungry, food preferences taken. Not able to provide diabetic education d/ t pt metnal status. Current Diet Order/ Nutrition Support [facility] soft chopped, ccho 60gm Pertinent Medications maalox, iron, glucotrol, novolog, synthroid, glucotrol, theragran, zofran, protonix Pertinent Labs 09/21 glucose 227, POC 174-288, alb 3.6 Nutritional Hx/Data Height 1.63 m Height (Calculated Centimeters) 162.6 Current Weight (lbs) 52.163 kg Weight (Calculated Kilograms) 52.2 Weight (Calculated Grams) 43015.1 [place] Body Weight 120 Body Mass Index (BMI) 19.7 Weight Status Approriate GI Symptoms GI Symptoms None Last BM not indicated Difficult in: None Food Allergies No Skin Integrity/Comment: area of concern, teetee Vergara Estimated Nutritional Goals BEE in Kcals: Using Current wt Calories/Kcals/Kg 25-30 Kcals Calculated 9956-5681 Protein: Using Current wt Protein g/k Protein Calculated 52 Fluid: ml 7902-9482 (1ml/kcal) Nutritional Problem 1. Problem Problem altered nutrition related labs Etiology hyperglycemia Signs/Symptoms: glucose 227, POC 335, 174, 288 Malnutrition Alert Is there a minimum of two criteria No selected? Query Text:Check all the applicable criteria. A minimum of two criteria are recommended for diagnosis of either severe or non-severe malnutrition. Malnutrition Related to Morbid Obesity Malnutrition related to morbid obesity No Intervention/Recommendation Comments 1. Continue with [facility] soft chopped ccho 60gm diet as ordered. 2. Monitor PO intake, wt, labs and skin integrity 3. F/U as moderate risk in 3-5 days, PO check 09/25 Expected Outcomes/Goals Expected Outcomes/Goals 1. PO intake to meet at least 75% of nutritional needs. 2. Wt stability, skin to remain intact, labs to approach WNL. Reviewed by DANIELLE Love RD
[2018-10-12] MEDS: Insulin Detemir 100 units/mL 10mL Vial SUBQ SCH (20:47)
[2018-10-12] MEDS: MELATONIN 5 MG PO SCH (21:31)
[2018-10-13] MEDS: Levothyroxine 0.025 Mg Tab PO SCH (06:37)
[2018-10-13] MEDS: Pantoprazole 40 mg EC Tab PO SCH (06:37)
[2018-10-13] MEDS: INSULIN ASPART SLIDING SCALE 100 UNITS/ML UNIT SUBQ SCH ×4 (06:38→20:54)
[2018-10-13] MEDS: Ferrous Sulfate 325 MG TAB PO SCH (08:53)
--- NOTE | 2018-10-13 09:36 | Internal Medicine Prog Note ---
Internal Medicine Subjective - Subjective Service Date: 10/13/18 Patient seen and examined:: without staff Patient is:: asleep Per staff patient has:: no adverse event Internal Medicine Objective - Results Result Diagrams: 09/21/18 13:20 09/21/18 13:20 Recent Labs: Laboratory Last Values WBC 7.1 Th/cmm (4.8-10.8) 09/21/18 13:20 RBC 4.71 Mil/cmm (3.80-5.20) 09/21/18 13:20 Hgb 14.0 gm/dL (12-16) 09/21/18 13:20 Hct 42.6 % (41.0-60) 09/21/18 13:20 MCV 90.4 fl (81-100) 09/21/18 13:20 MCH 29.7 pg (27.0-31.0) 09/21/18 13:20 MCHC Differential 32.8 pg (28.0-36.0) 09/21/18 13:20 RDW 12.9 % (11.5-20.0) 09/21/18 13:20 Plt Count 218 Th/cmm (150-400) 09/21/18 13:20 MPV 7.6 fl 09/21/18 13:20 Neutrophils % 82.0 % (40.0-80.0) H 09/21/18 13:20 Lymphocytes % 9.5 % (20.0-50.0) L 09/21/18 13:20 Monocytes % 7.7 % (2.0-10.0) 09/21/18 13:20 Eosinophils % 0.6 % (0.0-5.0) 09/21/18 13:20 Basophils % 0.2 % (0.0-2.0) 09/21/18 13:20 Sodium 139 mEq/L (136-145) 09/21/18 13:20 Potassium 4.1 mEq/L (3.5-5.1) 09/21/18 13:20 Chloride 103 mEq/L (98-107) 09/21/18 13:20 Carbon Dioxide 27.0 mEq/L (21.0-31.0) 09/21/18 13:20 Anion Gap 13.1 (7.0-16.0) 09/21/18 13:20 BUN 21 mg/dL (7-25) 09/21/18 13:20 Creatinine 0.5 mg/dL (0.6-1.2) L 09/21/18 13:20 Est GFR ( Amer) TNP 09/21/18 13:20 Est GFR (Non-Af Amer) TNP 09/21/18 13:20 BUN/Creatinine Ratio 42.0 09/21/18 13:20 Glucose 227 mg/dL (70-105) H 09/21/18 13:20 POC Glucose 138 MG/DL (70 - 105) H 10/13/18 05:56 Calcium 8.9 mg/dL (8.6-10.3) 09/21/18 13:20 Total Bilirubin 0.4 mg/dL (0.3-1.0) 09/21/18 13:20 AST 14 U/L (13-39) 09/21/18 13:20 ALT 14 U/L (7-52) 09/21/18 13:20 Alkaline Phosphatase 105 U/L (34-104) H 09/21/18 13:20 Total Protein 6.2 gm/dL (6.0-8.3) 09/21/18 13:20 Albumin 3.6 gm/dL (3.7-5.3) L 09/21/18 13:20 Globulin 2.6 gm/dL 09/21/18 13:20 Albumin/Globulin Ratio 1.4 (1.0-1.8) 09/21/18 13:20 Triglycerides 94 mg/dL (<150) 09/21/18 13:20 Cholesterol 175 mg/dL (<200) 09/21/18 13:20 LDL Cholesterol Direct 112 mg/dL (75-193) 09/21/18 13:20 HDL Cholesterol 53 mg/dL (23-92) 09/21/18 13:20 TSH 8.33 uIU/ml (0.34-5.60) H 09/21/18 13:20 Urine Source CLEAN C 10/01/18 16:55 Urine Color YELLOW 10/01/18 16:55 Urine Clarity CLEAR (CLEAR) 10/01/18 16:55 Urine pH 6.5 (4.6 - 8.0) 10/01/18 16:55 Ur Specific [place] 1.015 (1.005-1.030) 10/01/18 16:55 Urine Protein NEGATIVE mg/dL (NEGATIVE) 10/01/18 16:55 Urine Glucose (UA) >=1000 mg/dL (NEGATIVE) H 10/01/18 16:55 Urine Ketones TRACE mg/dL (NEGATIVE) 10/01/18 16:55 Urine Blood SMALL (NEGATIVE) H 10/01/18 16:55 Urine Nitrate NEGATIVE (NEGATIVE) 10/01/18 16:55 Urine Bilirubin NEGATIVE (NEGATIVE) 10/01/18 16:55 Urine Urobilinogen 0.2 E.U./dL (0.2 - 1.0) 10/01/18 16:55 Ur Leukocyte Esterase NEGATIVE (NEGATIVE) 10/01/18 16:55 Urine RBC NONE SEEN /hpf (0-5) 10/01/18 16:55 Urine WBC 2-5 /hpf (0-5) 10/01/18 16:55 Ur Epithelial Cells FEW /lpf (FEW) 10/01/18 16:55 Urine Bacteria FEW /hpf (NONE SEEN) 10/01/18 16:55 Valproic Acid 61.5 ug/mL (50.0-100.0) 10/09/18 07:30 RPR NONREACTIVE (NONREACTIVE) 09/21/18 13:30 - Physical Exam Vitals and I&O: Vital Signs Temp 97.1 F 10/13/18 06:44 Pulse 92 10/13/18 06:44 Resp 18 10/13/18 06:44 BP 126/72 10/13/18 06:44 Pulse Ox 98 10/13/18 06:44 Intake & Output 10/12/18 10/13/18 10/13/18 18:59 06:59 18:59 Intake Total 480 Balance 480 Intake: Oral 480 Other: # Voids 2 Active Medications: Current Medications Acetaminophen (Tylenol) 650 mg PO Q4HR PRN PRN Reason: Mild Pain / Temp above 100 Stop: 11/20/18 15:14 Last Admin: 10/07/18 03:23 Dose: 650 mg Al Hydrox/Mg Hydrox/Simethicone (Maalox) 30 ml PO Q4HR PRN PRN Reason: GI DISTRESS Stop: 11/20/18 15:14 Last Admin: 10/08/18 06:35 Dose: 30 ml Amlodipine Besylate (Norvasc) 10 mg PO DAILY [place] Stop: 11/21/18 10:59 Last Admin: 10/12/18 09:19 Dose: 10 mg Baclofen (Lioresal) 10 mg PO TID [facility] Stop: 11/20/18 20:59 Last Admin: 10/13/18 08:52 Dose: 10 mg Donepezil HCl (Aricept) 10 mg PO DAILY [facility] Stop: 12/03/18 08:59 Last Admin: 10/12/18 09:23 Dose: Not Given Ferrous Sulfate (Iron) 325 mg PO DAILY [facility] Stop: 11/21/18 08:59 Last Admin: 10/13/18 08:53 Dose: 325 mg Gabapentin (Neurontin) 300 mg PO TID [facility] Stop: 12/08/18 08:59 Last Admin: 10/12/18 20:31 Dose: 300 mg Glipizide (Glucotrol) 10 mg PO BID [facility] Stop: 11/23/18 16:59 Last Admin: 10/13/18 08:53 Dose: 10 mg Insulin Aspart (Novolog Insulin Sliding Scale) 0 units SUBQ ACHS [facility]; Protocol Stop: 11/20/18 20:59 Last Admin: 10/13/18 06:38 Dose: Not Given Insulin Detemir (Levemir Insulin) 12 units SUBQ [facility]; Protocol Stop: 11/30/18 20:59 Last Admin: 10/12/18 20:47 Dose: 12 units Levothyroxine Sodium (Synthroid) 0.025 mg PO QDAC [facility] Stop: 11/22/18 07:29 Last Admin: 10/13/18 06:37 Dose: 0.025 mg Lorazepam (Ativan) 0.5 mg PO Q4HR PRN; Protocol PRN Reason: Agitation Stop: 10/24/18 00:23 Last Admin: 10/12/18 19:46 Dose: 0.5 mg Magnesium Hydroxide (Milk Of Magnesia) 30 ml PO HS PRN PRN Reason: Constipation Metformin HCl (Glucophage) 1,000 mg PO BID [facility] Stop: 11/26/18 09:59 Last Admin: 10/13/18 08:50 Dose: 1,000 mg Multivitamins/Vitamin C (Theragran) 1 tab PO DAILY [facility] Stop: 11/21/18 08:59 Last Admin: 10/12/18 09:19 Dose: 1 tab Ondansetron HCl (Zofran Odt) 4 mg PO TID [facility] Stop: 11/20/18 20:59 Last Admin: 10/13/18 08:51 Dose: 4 mg Pantoprazole Sodium (Protonix) 40 mg PO QDAC [facility] Stop: 11/21/18 07:29 Last Admin: 10/13/18 06:37 Dose: 40 mg Patient Own Med- (Melatonin 5mg Tab) 1 PO HS [facility] Stop: 11/24/18 20:59 Last Admin: 10/12/18 21:31 Dose: 1 Pramipexole Dihydrochloride (Mirapex) 0.125 mg PO TID [facility] Stop: 11/21/18 08:59 Last Admin: 10/13/18 08:51 Dose: 0.125 mg Quetiapine Fumarate (Seroquel) 200 mg PO HS [facility] Stop: 12/08/18 20:59 Last Admin: 10/12/18 20:32 Dose: 200 mg Quetiapine Fumarate (Seroquel) 100 mg PO BID [facility] Stop: 12/08/18 08:59 Last Admin: 10/13/18 08:52 Dose: 100 mg Triamcinolone Acetonide (Kenalog 0.5%) 1 appl TP BID PRN PRN Reason: Rash Stop: 12/08/18 11:19 Last Admin: 10/11/18 09:10 Dose: 1 appl Valproate Sodium (Depakene) 500 mg PO TID [facility]; Protocol Stop: 12/03/18 08:59 Last Admin: 10/13/18 08:50 Dose: 500 mg General: demented HEENT: NC/AT, PERRLA, EOMI Neck: Supple, No JVD Lungs: CTAB Cardiovascular: RRR, with murmur Abdomen: soft, non-tender, positive bowel sound Neurological: no change Internal Medicine Assmt/Plan - Assessment Assessment: 1. ACUTE PSYCH DECOMPENSATION 2. HISTORY OD DEMENTIA WITH BEHAVIORAL D/O 3. HISTORY OF PARKINSON'S DISEASE 4. DM-2 5. HX OF ESSENTIAL HTN 6. ATAXIA 7. HX OF HYPOTHYROIDISM 8. HX OF GERD - Plan Plan: CONT WITH CURRENT INPT CARE AND MGT CONT WITH MEDS SCHEDULED CONT WITH GLIPIZIDE/METFORMIN/DETEMIR CONT WITH AMLODIPINE CONT WITH ARICEPT CONT WITH LEVOTHYROXINE CONT WITH PPI NEEDED Nutritional Asmnt/Malnutr-PDOC - Dietary Evaluation Malnutrition Findings (Please click <Entered> for more info): Nutritional Asmnt/Malnutrition Start: 09/22/18 14: 15 Text: Status: Complete Freq: Protocol: Document 09/22/18 14:17 [email or web address] (Rec: 09/22/18 14:24 [email or web address] TAM) Nutritional Asmnt/Malnutrition Patient General Information Nutritional Screening High Risk Diagnosis agitation Pertinent Medical Hx/Surgical Hx HTN, DM, bipolar, psychosis Subjective Information Glucose 227 at admission noted . Pt was seen sitting in adele chair in the dining room at time of visit, confused but able to answer questions. Pt said she was hungry, food preferences taken. Not able to provide diabetic education d/ t pt metnal status. Current Diet Order/ Nutrition Support [facility] soft chopped, ccho 60gm Pertinent Medications maalox, iron, glucotrol, novolog, synthroid, glucotrol, theragran, zofran, protonix Pertinent Labs 09/21 glucose 227, POC 174-288, alb 3.6 Nutritional Hx/Data Height 1.63 m Height (Calculated Centimeters) 162.6 Current Weight (lbs) 52.163 kg Weight (Calculated Kilograms) 52.2 Weight (Calculated Grams) 05157.1 [place] Body Weight 120 Body Mass Index (BMI) 19.7 Weight Status Approriate GI Symptoms GI Symptoms None Last BM not indicated Difficult in: None Food Allergies No Skin Integrity/Comment: area of concern, teetee Vergara Estimated Nutritional Goals BEE in Kcals: Using Current wt Calories/Kcals/Kg 25-30 Kcals Calculated 0774-0005 Protein: Using Current wt Protein g/k Protein Calculated 52 Fluid: ml 0689-9027 (1ml/kcal) Nutritional Problem 1. Problem Problem altered nutrition related labs Etiology hyperglycemia Signs/Symptoms: glucose 227, POC 335, 174, 288 Malnutrition Alert Is there a minimum of two criteria No selected? Query Text:Check all the applicable criteria. A minimum of two criteria are recommended for diagnosis of either severe or non-severe malnutrition. Malnutrition Related to Morbid Obesity Malnutrition related to morbid obesity No Intervention/Recommendation Comments 1. Continue with [facility] soft chopped ccho 60gm diet as ordered. 2. Monitor PO intake, wt, labs and skin integrity 3. F/U as moderate risk in 3-5 days, PO check 09/25 Expected Outcomes/Goals Expected Outcomes/Goals 1. PO intake to meet at least 75% of nutritional needs. 2. Wt stability, skin to remain intact, labs to approach WNL. Reviewed by DANIELLE Love RD
[2018-10-13] MEDS: Triamcinolone Acet 0.5% Cream 15 gm TP PRN (09:56)
[2018-10-13] MEDS: Multivitamin Tab PO SCH (14:20)
--- NOTE | 2018-10-13 18:55 | Progress Notes ---
DATE: 10/12/2018 SUBJECTIVE: Chart reviewed and the patient interviewed. Also discussed the patient's condition with the staff and reviewed records and labs. The patient is calm, but the fact that she seems to be slightly sedated today. The patient also is still having episodes of irritability and paranoia, but also it seems easier to redirect her. She also is trying to interact more, but she is still sleepy and seems to be tired. Otherwise, no other side effects of medications. ASSESSMENT: The patient still needs adjustment to her medications. TREATMENT PLAN: Continue to monitor behavior and condition closely. Also, we will start Zyprexa and continue Seroquel and the Depakote. Depakote blood level that was done on 10/09 came back to be 61.5, which is within therapeutic level. Continue same dose and followup. JOB# [id number]
[2018-10-13] MEDS: Insulin Detemir 100 units/mL 10mL Vial SUBQ SCH (20:58)
[2018-10-13] MEDS: MELATONIN 5 MG PO SCH (21:22)
[2018-10-14] MEDS: Pantoprazole 40 mg EC Tab PO SCH (06:37)
[2018-10-14] MEDS: Levothyroxine 0.025 Mg Tab PO SCH (06:37)
[2018-10-14] MEDS: INSULIN ASPART SLIDING SCALE 100 UNITS/ML UNIT SUBQ SCH ×4 (06:44→21:00)
[2018-10-14] MEDS: Multivitamin Tab PO SCH (08:40)
[2018-10-14] MEDS: Ferrous Sulfate 325 MG TAB PO SCH (08:51)
--- NOTE | 2018-10-14 14:40 | General Progress Note ---
Subjective - Review of Systems Service Date: 10/14/18 Subjective: alert, quiet Objective - Results Result Diagrams: 09/21/18 13:20 09/21/18 13:20 Recent Labs: Laboratory Last Values WBC 7.1 Th/cmm (4.8-10.8) 09/21/18 13:20 RBC 4.71 Mil/cmm (3.80-5.20) 09/21/18 13:20 Hgb 14.0 gm/dL (12-16) 09/21/18 13:20 Hct 42.6 % (41.0-60) 09/21/18 13:20 MCV 90.4 fl (81-100) 09/21/18 13:20 MCH 29.7 pg (27.0-31.0) 09/21/18 13:20 MCHC Differential 32.8 pg (28.0-36.0) 09/21/18 13:20 RDW 12.9 % (11.5-20.0) 09/21/18 13:20 Plt Count 218 Th/cmm (150-400) 09/21/18 13:20 MPV 7.6 fl 09/21/18 13:20 Neutrophils % 82.0 % (40.0-80.0) H 09/21/18 13:20 Lymphocytes % 9.5 % (20.0-50.0) L 09/21/18 13:20 Monocytes % 7.7 % (2.0-10.0) 09/21/18 13:20 Eosinophils % 0.6 % (0.0-5.0) 09/21/18 13:20 Basophils % 0.2 % (0.0-2.0) 09/21/18 13:20 Sodium 139 mEq/L (136-145) 09/21/18 13:20 Potassium 4.1 mEq/L (3.5-5.1) 09/21/18 13:20 Chloride 103 mEq/L (98-107) 09/21/18 13:20 Carbon Dioxide 27.0 mEq/L (21.0-31.0) 09/21/18 13:20 Anion Gap 13.1 (7.0-16.0) 09/21/18 13:20 BUN 21 mg/dL (7-25) 09/21/18 13:20 Creatinine 0.5 mg/dL (0.6-1.2) L 09/21/18 13:20 Est GFR ( Amer) TNP 09/21/18 13:20 Est GFR (Non-Af Amer) TNP 09/21/18 13:20 BUN/Creatinine Ratio 42.0 09/21/18 13:20 Glucose 227 mg/dL (70-105) H 09/21/18 13:20 POC Glucose 94 MG/DL (70 - 105) 10/14/18 12:03 Calcium 8.9 mg/dL (8.6-10.3) 09/21/18 13:20 Total Bilirubin 0.4 mg/dL (0.3-1.0) 09/21/18 13:20 AST 14 U/L (13-39) 09/21/18 13:20 ALT 14 U/L (7-52) 09/21/18 13:20 Alkaline Phosphatase 105 U/L (34-104) H 09/21/18 13:20 Total Protein 6.2 gm/dL (6.0-8.3) 09/21/18 13:20 Albumin 3.6 gm/dL (3.7-5.3) L 09/21/18 13:20 Globulin 2.6 gm/dL 09/21/18 13:20 Albumin/Globulin Ratio 1.4 (1.0-1.8) 09/21/18 13:20 Triglycerides 94 mg/dL (<150) 09/21/18 13:20 Cholesterol 175 mg/dL (<200) 09/21/18 13:20 LDL Cholesterol Direct 112 mg/dL (75-193) 09/21/18 13:20 HDL Cholesterol 53 mg/dL (23-92) 09/21/18 13:20 TSH 8.33 uIU/ml (0.34-5.60) H 09/21/18 13:20 Urine Source CLEAN C 10/01/18 16:55 Urine Color YELLOW 10/01/18 16:55 Urine Clarity CLEAR (CLEAR) 10/01/18 16:55 Urine pH 6.5 (4.6 - 8.0) 10/01/18 16:55 Ur Specific [place] 1.015 (1.005-1.030) 10/01/18 16:55 Urine Protein NEGATIVE mg/dL (NEGATIVE) 10/01/18 16:55 Urine Glucose (UA) >=1000 mg/dL (NEGATIVE) H 10/01/18 16:55 Urine Ketones TRACE mg/dL (NEGATIVE) 10/01/18 16:55 Urine Blood SMALL (NEGATIVE) H 10/01/18 16:55 Urine Nitrate NEGATIVE (NEGATIVE) 10/01/18 16:55 Urine Bilirubin NEGATIVE (NEGATIVE) 10/01/18 16:55 Urine Urobilinogen 0.2 E.U./dL (0.2 - 1.0) 10/01/18 16:55 Ur Leukocyte Esterase NEGATIVE (NEGATIVE) 10/01/18 16:55 Urine RBC NONE SEEN /hpf (0-5) 10/01/18 16:55 Urine WBC 2-5 /hpf (0-5) 10/01/18 16:55 Ur Epithelial Cells FEW /lpf (FEW) 10/01/18 16:55 Urine Bacteria FEW /hpf (NONE SEEN) 10/01/18 16:55 Valproic Acid 61.5 ug/mL (50.0-100.0) 10/09/18 07:30 RPR NONREACTIVE (NONREACTIVE) 09/21/18 13:30 - Physical Exam Vitals and I&O: Vital Signs Temp 98.4 F 10/14/18 05:01 Pulse 92 10/14/18 08:42 Resp 20 10/14/18 05:01 BP 126/72 10/14/18 08:42 Pulse Ox 94 10/14/18 05:01 Intake & Output 10/13/18 10/14/18 10/14/18 18:59 06:59 18:59 Intake Total 1000 240 Balance 1000 240 Intake: Oral 1000 240 Other: # Voids 4 2 # Bowel Movements 1 Active Medications: Current Medications Acetaminophen (Tylenol) 650 mg PO Q4HR PRN PRN Reason: Mild Pain / Temp above 100 Stop: 11/20/18 15:14 Last Admin: 10/13/18 20:49 Dose: 650 mg Al Hydrox/Mg Hydrox/Simethicone (Maalox) 30 ml PO Q4HR PRN PRN Reason: GI DISTRESS Stop: 11/20/18 15:14 Last Admin: 10/08/18 06:35 Dose: 30 ml Amlodipine Besylate (Norvasc) 10 mg PO DAILY [place] Stop: 11/21/18 10:59 Last Admin: 10/14/18 08:42 Dose: 10 mg Baclofen (Lioresal) 10 mg PO TID [facility] Stop: 11/20/18 20:59 Last Admin: 10/14/18 13:08 Dose: 10 mg Donepezil HCl (Aricept) 10 mg PO DAILY [facility] Stop: 12/03/18 08:59 Last Admin: 10/14/18 08:40 Dose: 10 mg Ferrous Sulfate (Iron) 325 mg PO DAILY [facility] Stop: 11/21/18 08:59 Last Admin: 10/14/18 08:51 Dose: 325 mg Gabapentin (Neurontin) 300 mg PO TID [facility] Stop: 12/08/18 08:59 Last Admin: 10/14/18 13:08 Dose: 300 mg Glipizide (Glucotrol) 10 mg PO BID [facility] Stop: 11/23/18 16:59 Last Admin: 10/14/18 08:41 Dose: 10 mg Insulin Aspart (Novolog Insulin Sliding Scale) 0 units SUBQ ACHS [facility]; Protocol Stop: 11/20/18 20:59 Last Admin: 10/14/18 12:08 Dose: Not Given Insulin Detemir (Levemir Insulin) 12 units SUBQ HS [facility]; Protocol Stop: 11/30/18 20:59 Last Admin: 10/13/18 20:58 Dose: 12 units Levothyroxine Sodium (Synthroid) 0.025 mg PO QDAC [facility] Stop: 11/22/18 07:29 Last Admin: 10/14/18 06:37 Dose: 0.025 mg Lorazepam (Ativan) 0.5 mg PO Q4HR PRN; Protocol PRN Reason: Agitation Stop: 10/24/18 00:23 Last Admin: 10/14/18 10:34 Dose: 0.5 mg Magnesium Hydroxide (Milk Of Magnesia) 30 ml PO HS PRN PRN Reason: Constipation Metformin HCl (Glucophage) 1,000 mg PO BID [facility] Stop: 11/26/18 09:59 Last Admin: 10/14/18 08:39 Dose: 1,000 mg Multivitamins/Vitamin C (Theragran) 1 tab PO DAILY [facility] Stop: 11/21/18 08:59 Last Admin: 10/14/18 08:40 Dose: 1 tab Ondansetron HCl (Zofran Odt) 4 mg PO TID [facility] Stop: 11/20/18 20:59 Last Admin: 10/14/18 13:08 Dose: 4 mg Pantoprazole Sodium (Protonix) 40 mg PO QDAC [facility] Stop: 11/21/18 07:29 Last Admin: 10/14/18 06:37 Dose: 40 mg Patient Own Med- (Melatonin 5mg Tab) 1 PO HS [facility] Stop: 11/24/18 20:59 Last Admin: 10/13/18 21:22 Dose: 1 Pramipexole Dihydrochloride (Mirapex) 0.125 mg PO TID [facility] Stop: 11/21/18 08:59 Last Admin: 10/14/18 13:08 Dose: 0.125 mg Quetiapine Fumarate (Seroquel) 200 mg PO HS [facility] Stop: 12/08/18 20:59 Last Admin: 10/13/18 20:50 Dose: 200 mg Quetiapine Fumarate (Seroquel) 100 mg PO BID [facility] Stop: 12/08/18 08:59 Last Admin: 10/14/18 08:42 Dose: 100 mg Triamcinolone Acetonide (Kenalog 0.5%) 1 appl TP BID PRN PRN Reason: Rash Stop: 12/08/18 11:19 Last Admin: 10/13/18 09:56 Dose: 1 appl Valproate Sodium (Depakene) 500 mg PO TID [facility]; Protocol Stop: 12/03/18 08:59 Last Admin: 10/14/18 13:08 Dose: 500 mg General: Alert, No acute distress HEENT: Atraumatic, Mucous membr. moist/pink Neck: Supple, +2 carotid pulse wo bruit Cardiovascular: Regular rate, Normal S1, Normal S2 Lungs: Clear to auscultation Abdomen: Bowel sounds, Soft Extremities: no Edema Neurological: Sensation intact Skin: no Rash Psych/Mental Status: Other (psychosis) Assessment/Plan - Assessment Assessment: Acute Psych Decomp Parkinson's Ds T2DM Ess Htn Ataxia Hypothyroid GERD - Plan Plan: Lab - Result Diagrams 09/21/18 13:20 09/21/18 13:20 Current Medications Acetaminophen (Tylenol) 650 mg PO Q4HR PRN PRN Reason: Mild Pain / Temp above 100 Stop: 11/20/18 15:14 Last Admin: 10/13/18 20:49 Dose: 650 mg Al Hydrox/Mg Hydrox/Simethicone (Maalox) 30 ml PO Q4HR PRN PRN Reason: GI DISTRESS Stop: 11/20/18 15:14 Last Admin: 10/08/18 06:35 Dose: 30 ml Amlodipine Besylate (Norvasc) 10 mg PO DAILY [facility] Stop: 11/21/18 10:59 Last Admin: 10/14/18 08:42 Dose: 10 mg Baclofen (Lioresal) 10 mg PO TID [facility] Stop: 11/20/18 20:59 Last Admin: 10/14/18 13:08 Dose: 10 mg Donepezil HCl (Aricept) 10 mg PO DAILY [facility] Stop: 12/03/18 08:59 Last Admin: 10/14/18 08:40 Dose: 10 mg Ferrous Sulfate (Iron) 325 mg PO DAILY [facility] Stop: 11/21/18 08:59 Last Admin: 10/14/18 08:51 Dose: 325 mg Gabapentin (Neurontin) 300 mg PO TID [facility] Stop: 12/08/18 08:59 Last Admin: 10/14/18 13:08 Dose: 300 mg Glipizide (Glucotrol) 10 mg PO BID [facility] Stop: 11/23/18 16:59 Last Admin: 10/14/18 08:41 Dose: 10 mg Insulin Aspart (Novolog Insulin Sliding Scale) 0 units SUBQ [facility]; Protocol Stop: 11/20/18 20:59 Last Admin: 10/14/18 12:08 Dose: Not Given Insulin Detemir (Levemir Insulin) 12 units SUBQ [facility]; Protocol Stop: 11/30/18 20:59 Last Admin: 10/13/18 20:58 Dose: 12 units Levothyroxine Sodium (Synthroid) 0.025 mg PO QDAC [facility] Stop: 11/22/18 07:29 Last Admin: 10/14/18 06:37 Dose: 0.025 mg Lorazepam (Ativan) 0.5 mg PO Q4HR PRN; Protocol PRN Reason: Agitation Stop: 10/24/18 00:23 Last Admin: 10/14/18 10:34 Dose: 0.5 mg Magnesium Hydroxide (Milk Of Magnesia) 30 ml PO HS PRN PRN Reason: Constipation Metformin HCl (Glucophage) 1,000 mg PO BID [facility] Stop: 11/26/18 09:59 Last Admin: 10/14/18 08:39 Dose: 1,000 mg Multivitamins/Vitamin C (Theragran) 1 tab PO DAILY [facility] Stop: 11/21/18 08:59 Last Admin: 10/14/18 08:40 Dose: 1 tab Ondansetron HCl (Zofran Odt) 4 mg PO TID [facility] Stop: 11/20/18 20:59 Last Admin: 10/14/18 13:08 Dose: 4 mg Pantoprazole Sodium (Protonix) 40 mg PO QDAC [facility] Stop: 11/21/18 07:29 Last Admin: 10/14/18 06:37 Dose: 40 mg Patient Own Med- (Melatonin 5mg Tab) 1 PO HS [facility] Stop: 11/24/18 20:59 Last Admin: 10/13/18 21:22 Dose: 1 Pramipexole Dihydrochloride (Mirapex) 0.125 mg PO TID [facility] Stop: 11/21/18 08:59 Last Admin: 10/14/18 13:08 Dose: 0.125 mg Quetiapine Fumarate (Seroquel) 200 mg PO HS [facility] Stop: 12/08/18 20:59 Last Admin: 10/13/18 20:50 Dose: 200 mg Quetiapine Fumarate (Seroquel) 100 mg PO BID [facility] Stop: 12/08/18 08:59 Last Admin: 10/14/18 08:42 Dose: 100 mg Triamcinolone Acetonide (Kenalog 0.5%) 1 appl TP BID PRN PRN Reason: Rash Stop: 12/08/18 11:19 Last Admin: 10/13/18 09:56 Dose: 1 appl Valproate Sodium (Depakene) 500 mg PO TID [facility]; Protocol Stop: 12/03/18 08:59 Last Admin: 10/14/18 13:08 Dose: 500 mg continue Pych meds BP stable Nutritional Asmnt/Malnutr-PDOC - Dietary Evaluation Malnutrition Findings (Please click <Entered> for more info): Nutritional Asmnt/Malnutrition Start: 09/22/18 14: 15 Text: Status: Complete Freq: Protocol: Document 09/22/18 14:17 [email or web address] (Rec: 09/22/18 14:24 [email or web address] TAM) Nutritional Asmnt/Malnutrition Patient General Information Nutritional Screening High Risk Diagnosis agitation Pertinent Medical Hx/Surgical Hx HTN, DM, bipolar, psychosis Subjective Information Glucose 227 at admission noted . Pt was seen sitting in adele chair in the dining room at time of visit, confused but able to answer questions. Pt said she was hungry, food preferences taken. Not able to provide diabetic education d/ t pt metnal status. Current Diet Order/ Nutrition Support [facility] soft chopped, ccho 60gm Pertinent Medications maalox, iron, glucotrol, novolog, synthroid, glucotrol, theragran, zofran, protonix Pertinent Labs 09/21 glucose 227, POC 174-288, alb 3.6 Nutritional Hx/Data Height 1.63 m Height (Calculated Centimeters) 162.6 Current Weight (lbs) 52.163 kg Weight (Calculated Kilograms) 52.2 Weight (Calculated Grams) 10175.1 [place] Body Weight 120 Body Mass Index (BMI) 19.7 Weight Status Approriate GI Symptoms GI Symptoms None Last BM not indicated Difficult in: None Food Allergies No Skin Integrity/Comment: area of concern, teetee Vergara Estimated Nutritional Goals BEE in Kcals: Using Current wt Calories/Kcals/Kg 25-30 Kcals Calculated 1441-4742 Protein: Using Current wt Protein g/k Protein Calculated 52 Fluid: ml 8197-7101 (1ml/kcal) Nutritional Problem 1. Problem Problem altered nutrition related labs Etiology hyperglycemia Signs/Symptoms: glucose 227, POC 335, 174, 288 Malnutrition Alert Is there a minimum of two criteria No selected? Query Text:Check all the applicable criteria. A minimum of two criteria are recommended for diagnosis of either severe or non-severe malnutrition. Malnutrition Related to Morbid Obesity Malnutrition related to morbid obesity No Intervention/Recommendation Comments 1. Continue with the [facility] soft chopped ccho 60gm diet as ordered. 2. Monitor PO intake, wt, labs and skin integrity 3. F/U as moderate risk in 3-5 days, PO check 09/25 Expected Outcomes/Goals Expected Outcomes/Goals 1. PO intake to meet at least 75% of nutritional needs. 2. Wt stability, skin to remain intact, labs to approach WNL. Reviewed by DANIELLE Love RD
--- NOTE | 2018-10-14 15:29 | Progress Notes ---
DATE: 10/14/2018 Case was discussed with staff of the patient, reviewed records. Covering for Dr. Taylor. This is a well-known case, I am seeing before covering for Dr. Taylor. The patient continues to have episodes of irritability, paranoia. However, she has been easier to redirect. She is interacting more. At times, seeming to be tired. She continues to need medication adjustment. The patient is on Seroquel. The dose was increased to 100 mg twice a day, 200 mg at bedtime and Neurontin 300 mg 3 times a day, iron, Aricept 10 mg at bedtime. She is also on the rest of her medication for medical condition and we will continue the patient in group therapy, milieu therapy, and adjust the medication as needed. JOB# [id number]
--- NOTE | 2018-10-14 16:08 | Progress Notes ---
DATE: 10/13/2018 SUBJECTIVE: Chart reviewed and the patient interviewed. Also discussed the patient's condition with the staff and reviewed records and labs. The patient continued to be easily agitated and she is in irritable mood. The patient is also little suspicious and is still paranoid. She also still entering other patient's rooms and getting their clothes, although she was doing slightly better, but yet started to act out again. The patient also still at times resisting care and she is resisting redirections. Otherwise, the patient is compliant with taking medications and no side effects of medications. ASSESSMENT: The patient is still agitated and needs close monitoring. TREATMENT PLAN: Continue to monitor her behavior and her condition. Also, continue adjusting psychotropic medications and work on behavioral modification. JOB# [id number]
[2018-10-14] MEDS: MELATONIN 5 MG PO SCH (20:45)
[2018-10-14] MEDS: Insulin Detemir 100 units/mL 10mL Vial SUBQ SCH (21:00)
[2018-10-15] MEDS: INSULIN ASPART SLIDING SCALE 100 UNITS/ML UNIT SUBQ SCH ×4 (06:44→21:39)
[2018-10-15] MEDS: Levothyroxine 0.025 Mg Tab PO SCH (06:45)
[2018-10-15] MEDS: Pantoprazole 40 mg EC Tab PO SCH (06:46)
[2018-10-15] MEDS: Multivitamin Tab PO SCH (08:52)
[2018-10-15] MEDS: Ferrous Sulfate 325 MG TAB PO SCH (08:52)
--- NOTE | 2018-10-15 16:28 | General Progress Note ---
Subjective - Review of Systems Service Date: 10/15/18 Subjective: alert, quiet, ambulating Objective - Results Result Diagrams: 09/21/18 13:20 09/21/18 13:20 Recent Labs: Laboratory Last Values WBC 7.1 Th/cmm (4.8-10.8) 09/21/18 13:20 RBC 4.71 Mil/cmm (3.80-5.20) 09/21/18 13:20 Hgb 14.0 gm/dL (12-16) 09/21/18 13:20 Hct 42.6 % (41.0-60) 09/21/18 13:20 MCV 90.4 fl (81-100) 09/21/18 13:20 MCH 29.7 pg (27.0-31.0) 09/21/18 13:20 MCHC Differential 32.8 pg (28.0-36.0) 09/21/18 13:20 RDW 12.9 % (11.5-20.0) 09/21/18 13:20 Plt Count 218 Th/cmm (150-400) 09/21/18 13:20 MPV 7.6 fl 09/21/18 13:20 Neutrophils % 82.0 % (40.0-80.0) H 09/21/18 13:20 Lymphocytes % 9.5 % (20.0-50.0) L 09/21/18 13:20 Monocytes % 7.7 % (2.0-10.0) 09/21/18 13:20 Eosinophils % 0.6 % (0.0-5.0) 09/21/18 13:20 Basophils % 0.2 % (0.0-2.0) 09/21/18 13:20 Sodium 139 mEq/L (136-145) 09/21/18 13:20 Potassium 4.1 mEq/L (3.5-5.1) 09/21/18 13:20 Chloride 103 mEq/L (98-107) 09/21/18 13:20 Carbon Dioxide 27.0 mEq/L (21.0-31.0) 09/21/18 13:20 Anion Gap 13.1 (7.0-16.0) 09/21/18 13:20 BUN 21 mg/dL (7-25) 09/21/18 13:20 Creatinine 0.5 mg/dL (0.6-1.2) L 09/21/18 13:20 Est GFR ( Amer) TNP 09/21/18 13:20 Est GFR (Non-Af Amer) TNP 09/21/18 13:20 BUN/Creatinine Ratio 42.0 09/21/18 13:20 Glucose 227 mg/dL (70-105) H 09/21/18 13:20 POC Glucose 146 MG/DL (70 - 105) H 10/15/18 12:18 Calcium 8.9 mg/dL (8.6-10.3) 09/21/18 13:20 Total Bilirubin 0.4 mg/dL (0.3-1.0) 09/21/18 13:20 AST 14 U/L (13-39) 09/21/18 13:20 ALT 14 U/L (7-52) 09/21/18 13:20 Alkaline Phosphatase 105 U/L (34-104) H 09/21/18 13:20 Total Protein 6.2 gm/dL (6.0-8.3) 09/21/18 13:20 Albumin 3.6 gm/dL (3.7-5.3) L 09/21/18 13:20 Globulin 2.6 gm/dL 09/21/18 13:20 Albumin/Globulin Ratio 1.4 (1.0-1.8) 09/21/18 13:20 Triglycerides 94 mg/dL (<150) 09/21/18 13:20 Cholesterol 175 mg/dL (<200) 09/21/18 13:20 LDL Cholesterol Direct 112 mg/dL (75-193) 09/21/18 13:20 HDL Cholesterol 53 mg/dL (23-92) 09/21/18 13:20 TSH 8.33 uIU/ml (0.34-5.60) H 09/21/18 13:20 Urine Source CLEAN C 10/01/18 16:55 Urine Color YELLOW 10/01/18 16:55 Urine Clarity CLEAR (CLEAR) 10/01/18 16:55 Urine pH 6.5 (4.6 - 8.0) 10/01/18 16:55 Ur Specific [place] 1.015 (1.005-1.030) 10/01/18 16:55 Urine Protein NEGATIVE mg/dL (NEGATIVE) 10/01/18 16:55 Urine Glucose (UA) >=1000 mg/dL (NEGATIVE) H 10/01/18 16:55 Urine Ketones TRACE mg/dL (NEGATIVE) 10/01/18 16:55 Urine Blood SMALL (NEGATIVE) H 10/01/18 16:55 Urine Nitrate NEGATIVE (NEGATIVE) 10/01/18 16:55 Urine Bilirubin NEGATIVE (NEGATIVE) 10/01/18 16:55 Urine Urobilinogen 0.2 E.U./dL (0.2 - 1.0) 10/01/18 16:55 Ur Leukocyte Esterase NEGATIVE (NEGATIVE) 10/01/18 16:55 Urine RBC NONE SEEN /hpf (0-5) 10/01/18 16:55 Urine WBC 2-5 /hpf (0-5) 10/01/18 16:55 Ur Epithelial Cells FEW /lpf (FEW) 10/01/18 16:55 Urine Bacteria FEW /hpf (NONE SEEN) 10/01/18 16:55 Valproic Acid 61.5 ug/mL (50.0-100.0) 10/09/18 07:30 RPR NONREACTIVE (NONREACTIVE) 09/21/18 13:30 - Physical Exam Vitals and I&O: Vital Signs Temp 98.1 F 10/14/18 20:45 Pulse 96 10/15/18 08:53 Resp 19 10/14/18 20:45 BP 108/70 10/15/18 08:53 Pulse Ox 96 10/14/18 20:45 Intake & Output 10/14/18 10/15/18 10/15/18 18:59 06:59 18:59 Intake Total 1550 480 Balance 1550 480 Intake: Oral 1550 480 Other: # Voids 4 1 # Bowel Movements 0 Active Medications: Current Medications Acetaminophen (Tylenol) 650 mg PO Q4HR PRN PRN Reason: Mild Pain / Temp above 100 Stop: 11/20/18 15:14 Last Admin: 10/15/18 09:15 Dose: 650 mg Al Hydrox/Mg Hydrox/Simethicone (Maalox) 30 ml PO Q4HR PRN PRN Reason: GI DISTRESS Stop: 11/20/18 15:14 Last Admin: 10/08/18 06:35 Dose: 30 ml Amlodipine Besylate (Norvasc) 10 mg PO DAILY [place] Stop: 11/21/18 10:59 Last Admin: 10/15/18 08:53 Dose: Not Given Baclofen (Lioresal) 10 mg PO TID [facility] Stop: 11/20/18 20:59 Last Admin: 10/15/18 13:20 Dose: 10 mg Donepezil HCl (Aricept) 10 mg PO DAILY [facility] Stop: 12/03/18 08:59 Last Admin: 10/15/18 08:52 Dose: 10 mg Ferrous Sulfate (Iron) 325 mg PO DAILY [facility] Stop: 11/21/18 08:59 Last Admin: 10/15/18 08:52 Dose: 325 mg Gabapentin (Neurontin) 300 mg PO TID [facility] Stop: 12/08/18 08:59 Last Admin: 10/15/18 13:20 Dose: 300 mg Glipizide (Glucotrol) 10 mg PO BID [facility] Stop: 11/23/18 16:59 Last Admin: 10/15/18 08:53 Dose: 10 mg Insulin Aspart (Novolog Insulin Sliding Scale) 0 units SUBQ ACHS [facility]; Protocol Stop: 11/20/18 20:59 Last Admin: 10/15/18 12:00 Dose: 3 units Insulin Detemir (Levemir Insulin) 12 units SUBQ [facility]; Protocol Stop: 11/30/18 20:59 Last Admin: 10/14/18 21:00 Dose: Not Given Levothyroxine Sodium (Synthroid) 0.025 mg PO QDAC [facility] Stop: 11/22/18 07:29 Last Admin: 10/15/18 06:45 Dose: 0.025 mg Lorazepam (Ativan) 0.5 mg PO Q4HR PRN; Protocol PRN Reason: Agitation Stop: 10/24/18 00:23 Last Admin: 10/14/18 22:08 Dose: 0.5 mg Magnesium Hydroxide (Milk Of Magnesia) 30 ml PO HS PRN PRN Reason: Constipation Metformin HCl (Glucophage) 1,000 mg PO BID [facility] Stop: 11/26/18 09:59 Last Admin: 10/15/18 08:54 Dose: 1,000 mg Multivitamins/Vitamin C (Theragran) 1 tab PO DAILY [facility] Stop: 11/21/18 08:59 Last Admin: 10/15/18 08:52 Dose: 1 tab Ondansetron HCl (Zofran Odt) 4 mg PO TID [facility] Stop: 11/20/18 20:59 Last Admin: 10/15/18 13:20 Dose: 4 mg Pantoprazole Sodium (Protonix) 40 mg PO QDAC [facility] Stop: 11/21/18 07:29 Last Admin: 10/15/18 06:46 Dose: 40 mg Patient Own Med- (Melatonin 5mg Tab) 1 PO HS [facility] Stop: 11/24/18 20:59 Last Admin: 10/14/18 20:45 Dose: 1 Pramipexole Dihydrochloride (Mirapex) 0.125 mg PO TID [facility] Stop: 11/21/18 08:59 Last Admin: 10/15/18 13:20 Dose: 0.125 mg Quetiapine Fumarate (Seroquel) 200 mg PO HS [facility] Stop: 12/08/18 20:59 Last Admin: 10/14/18 20:46 Dose: 200 mg Quetiapine Fumarate (Seroquel) 100 mg PO BID [facility] Stop: 12/08/18 08:59 Last Admin: 10/15/18 08:52 Dose: 100 mg Triamcinolone Acetonide (Kenalog 0.5%) 1 appl TP BID PRN PRN Reason: Rash Stop: 12/08/18 11:19 Last Admin: 10/13/18 09:56 Dose: 1 appl Valproate Sodium (Depakene) 500 mg PO TID [facility]; Protocol Stop: 12/03/18 08:59 Last Admin: 10/15/18 13:20 Dose: 500 mg General: Alert, No acute distress HEENT: Atraumatic, Mucous membr. moist/pink Neck: Supple, +2 carotid pulse wo bruit Cardiovascular: Regular rate, Normal S1, Normal S2 Lungs: Clear to auscultation Abdomen: Bowel sounds, Soft Extremities: no Edema Neurological: Sensation intact Skin: no Rash Psych/Mental Status: Other (psychosis) Assessment/Plan - Assessment Assessment: Acute Psych Decomp Parkinson's Ds T2DM Ess Htn Ataxia Hypothyroid GERD - Plan Plan: Lab - Result Diagrams 09/21/18 13:20 09/21/18 13:20 Current Medications Acetaminophen (Tylenol) 650 mg PO Q4HR PRN PRN Reason: Mild Pain / Temp above 100 Stop: 11/20/18 15:14 Last Admin: 10/13/18 20:49 Dose: 650 mg Al Hydrox/Mg Hydrox/Simethicone (Maalox) 30 ml PO Q4HR PRN PRN Reason: GI DISTRESS Stop: 11/20/18 15:14 Last Admin: 10/08/18 06:35 Dose: 30 ml Amlodipine Besylate (Norvasc) 10 mg PO DAILY [facility] Stop: 11/21/18 10:59 Last Admin: 10/14/18 08:42 Dose: 10 mg Baclofen (Lioresal) 10 mg PO TID [facility] Stop: 11/20/18 20:59 Last Admin: 10/14/18 13:08 Dose: 10 mg Donepezil HCl (Aricept) 10 mg PO DAILY [facility] Stop: 12/03/18 08:59 Last Admin: 10/14/18 08:40 Dose: 10 mg Ferrous Sulfate (Iron) 325 mg PO DAILY [facility] Stop: 11/21/18 08:59 Last Admin: 10/14/18 08:51 Dose: 325 mg Gabapentin (Neurontin) 300 mg PO TID [facility] Stop: 12/08/18 08:59 Last Admin: 10/14/18 13:08 Dose: 300 mg Glipizide (Glucotrol) 10 mg PO BID [facility] Stop: 11/23/18 16:59 Last Admin: 10/14/18 08:41 Dose: 10 mg Insulin Aspart (Novolog Insulin Sliding Scale) 0 units SUBQ ACHS [facility]; Protocol Stop: 11/20/18 20:59 Last Admin: 10/14/18 12:08 Dose: Not Given Insulin Detemir (Levemir Insulin) 12 units SUBQ HS [facility]; Protocol Stop: 11/30/18 20:59 Last Admin: 10/13/18 20:58 Dose: 12 units Levothyroxine Sodium (Synthroid) 0.025 mg PO QDAC [facility] Stop: 11/22/18 07:29 Last Admin: 10/14/18 06:37 Dose: 0.025 mg Lorazepam (Ativan) 0.5 mg PO Q4HR PRN; Protocol PRN Reason: Agitation Stop: 10/24/18 00:23 Last Admin: 10/14/18 10:34 Dose: 0.5 mg Magnesium Hydroxide (Milk Of Magnesia) 30 ml PO HS PRN PRN Reason: Constipation Metformin HCl (Glucophage) 1,000 mg PO BID [facility] Stop: 11/26/18 09:59 Last Admin: 10/14/18 08:39 Dose: 1,000 mg Multivitamins/Vitamin C (Theragran) 1 tab PO DAILY [facility] Stop: 11/21/18 08:59 Last Admin: 10/14/18 08:40 Dose: 1 tab Ondansetron HCl (Zofran Odt) 4 mg PO TID [facility] Stop: 11/20/18 20:59 Last Admin: 10/14/18 13:08 Dose: 4 mg Pantoprazole Sodium (Protonix) 40 mg PO QDAC [facility] Stop: 11/21/18 07:29 Last Admin: 10/14/18 06:37 Dose: 40 mg Patient Own Med- (Melatonin 5mg Tab) 1 PO HS [facility] Stop: 11/24/18 20:59 Last Admin: 10/13/18 21:22 Dose: 1 Pramipexole Dihydrochloride (Mirapex) 0.125 mg PO TID [facility] Stop: 11/21/18 08:59 Last Admin: 10/14/18 13:08 Dose: 0.125 mg Quetiapine Fumarate (Seroquel) 200 mg PO HS [facility] Stop: 12/08/18 20:59 Last Admin: 10/13/18 20:50 Dose: 200 mg Quetiapine Fumarate (Seroquel) 100 mg PO BID [facility] Stop: 12/08/18 08:59 Last Admin: 10/14/18 08:42 Dose: 100 mg Triamcinolone Acetonide (Kenalog 0.5%) 1 appl TP BID PRN PRN Reason: Rash Stop: 12/08/18 11:19 Last Admin: 10/13/18 09:56 Dose: 1 appl Valproate Sodium (Depakene) 500 mg PO TID [facility]; Protocol Stop: 12/03/18 08:59 Last Admin: 10/14/18 13:08 Dose: 500 mg continue Pych meds BP stable Nutritional Asmnt/Malnutr-PDOC - Dietary Evaluation Malnutrition Findings (Please click <Entered> for more info): Nutritional Asmnt/Malnutrition Start: 09/22/18 14: 15 Text: Status: Complete Freq: Protocol: Document 09/22/18 14:17 [email or web address] (Rec: 09/22/18 14:24 [email or web address] TAM) Nutritional Asmnt/Malnutrition Patient General Information Nutritional Screening High Risk Diagnosis agitation Pertinent Medical Hx/Surgical Hx HTN, DM, bipolar, psychosis Subjective Information Glucose 227 at admission noted . Pt was seen sitting in adele chair in the dining room at time of visit, confused but able to answer questions. Pt said she was hungry, food preferences taken. Not able to provide diabetic education d/ t pt metnal status. Current Diet Order/ Nutrition Support [facility] soft chopped, ccho 60gm Pertinent Medications maalox, iron, glucotrol, novolog, synthroid, glucotrol, theragran, zofran, protonix Pertinent Labs 09/21 glucose 227, POC 174-288, alb 3.6 Nutritional Hx/Data Height 1.63 m Height (Calculated Centimeters) 162.6 Current Weight (lbs) 52.163 kg Weight (Calculated Kilograms) 52.2 Weight (Calculated Grams) 18667.1 [place] Body Weight 120 Body Mass Index (BMI) 19.7 Weight Status Approriate GI Symptoms GI Symptoms None Last BM not indicated Difficult in: None Food Allergies No Skin Integrity/Comment: area of concern, teetee Vergara Estimated Nutritional Goals BEE in Kcals: Using Current wt Calories/Kcals/Kg 25-30 Kcals Calculated 4455-0476 Protein: Using Current wt Protein g/k Protein Calculated 52 Fluid: ml 1201-6162 (1ml/kcal) Nutritional Problem 1. Problem Problem altered nutrition related labs Etiology hyperglycemia Signs/Symptoms: glucose 227, POC 335, 174, 288 Malnutrition Alert Is there a minimum of two criteria No selected? Query Text:Check all the applicable criteria. A minimum of two criteria are recommended for diagnosis of either severe or non-severe malnutrition. Malnutrition Related to Morbid Obesity Malnutrition related to morbid obesity No Intervention/Recommendation Comments 1. Continue with [facility] soft chopped ccho 60gm diet as ordered. 2. Monitor PO intake, wt, labs and skin integrity 3. F/U as moderate risk in 3-5 days, PO check 09/25 Expected Outcomes/Goals Expected Outcomes/Goals 1. PO intake to meet at least 75% of nutritional needs. 2. Wt stability, skin to remain intact, labs to approach WNL. Reviewed by DANIELLE Love RD
[2018-10-15] MEDS: Maalox 30 mL Cup PO PRN (16:45)
[2018-10-15] MEDS: MELATONIN 5 MG PO SCH (20:51)
[2018-10-15] MEDS: Insulin Detemir 100 units/mL 10mL Vial SUBQ SCH (21:39)
--- NOTE | 2018-10-16 02:03 | Progress Notes ---
DATE: 10/15/2018 Case was discussed with staff of the patient, reviewed records. Covering for Dr. Taylor. The patient continues to be confused, continues to be irritable, paranoid at times. She is easier to redirect. She is able to feed herself. She tolerated the medication with no side effects, no sedation, no nausea, no extrapyramidal symptoms. We will continue to work with the patient in group therapy, milieu therapy, adjust the medication as needed. JOB# [id number]
[2018-10-16] MEDS: Maalox 30 mL Cup PO PRN ×2 (06:15→14:36)
[2018-10-16] MEDS: Levothyroxine 0.025 Mg Tab PO SCH (06:30)
[2018-10-16] MEDS: INSULIN ASPART SLIDING SCALE 100 UNITS/ML UNIT SUBQ SCH ×5 (06:30→22:01)
[2018-10-16] MEDS: Pantoprazole 40 mg EC Tab PO SCH (06:30)
--- NOTE | 2018-10-16 10:04 | Internal Medicine Prog Note ---
Internal Medicine Subjective - Subjective Service Date: 10/16/18 Patient is:: asleep Per staff patient has:: no adverse event Internal Medicine Objective - Results Result Diagrams: 09/21/18 13:20 09/21/18 13:20 Recent Labs: Laboratory Last Values WBC 7.1 Th/cmm (4.8-10.8) 09/21/18 13:20 RBC 4.71 Mil/cmm (3.80-5.20) 09/21/18 13:20 Hgb 14.0 gm/dL (12-16) 09/21/18 13:20 Hct 42.6 % (41.0-60) 09/21/18 13:20 MCV 90.4 fl (81-100) 09/21/18 13:20 MCH 29.7 pg (27.0-31.0) 09/21/18 13:20 MCHC Differential 32.8 pg (28.0-36.0) 09/21/18 13:20 RDW 12.9 % (11.5-20.0) 09/21/18 13:20 Plt Count 218 Th/cmm (150-400) 09/21/18 13:20 MPV 7.6 fl 09/21/18 13:20 Neutrophils % 82.0 % (40.0-80.0) H 09/21/18 13:20 Lymphocytes % 9.5 % (20.0-50.0) L 09/21/18 13:20 Monocytes % 7.7 % (2.0-10.0) 09/21/18 13:20 Eosinophils % 0.6 % (0.0-5.0) 09/21/18 13:20 Basophils % 0.2 % (0.0-2.0) 09/21/18 13:20 Sodium 139 mEq/L (136-145) 09/21/18 13:20 Potassium 4.1 mEq/L (3.5-5.1) 09/21/18 13:20 Chloride 103 mEq/L (98-107) 09/21/18 13:20 Carbon Dioxide 27.0 mEq/L (21.0-31.0) 09/21/18 13:20 Anion Gap 13.1 (7.0-16.0) 09/21/18 13:20 BUN 21 mg/dL (7-25) 09/21/18 13:20 Creatinine 0.5 mg/dL (0.6-1.2) L 09/21/18 13:20 Est GFR ( Amer) TNP 09/21/18 13:20 Est GFR (Non-Af Amer) TNP 09/21/18 13:20 BUN/Creatinine Ratio 42.0 09/21/18 13:20 Glucose 227 mg/dL (70-105) H 09/21/18 13:20 POC Glucose 89 MG/DL (70 - 105) 10/16/18 06:11 Calcium 8.9 mg/dL (8.6-10.3) 09/21/18 13:20 Total Bilirubin 0.4 mg/dL (0.3-1.0) 09/21/18 13:20 AST 14 U/L (13-39) 09/21/18 13:20 ALT 14 U/L (7-52) 09/21/18 13:20 Alkaline Phosphatase 105 U/L (34-104) H 09/21/18 13:20 Total Protein 6.2 gm/dL (6.0-8.3) 09/21/18 13:20 Albumin 3.6 gm/dL (3.7-5.3) L 09/21/18 13:20 Globulin 2.6 gm/dL 09/21/18 13:20 Albumin/Globulin Ratio 1.4 (1.0-1.8) 09/21/18 13:20 Triglycerides 94 mg/dL (<150) 09/21/18 13:20 Cholesterol 175 mg/dL (<200) 09/21/18 13:20 LDL Cholesterol Direct 112 mg/dL (75-193) 09/21/18 13:20 HDL Cholesterol 53 mg/dL (23-92) 09/21/18 13:20 TSH 8.33 uIU/ml (0.34-5.60) H 09/21/18 13:20 Urine Source CLEAN C 10/01/18 16:55 Urine Color YELLOW 10/01/18 16:55 Urine Clarity CLEAR (CLEAR) 10/01/18 16:55 Urine pH 6.5 (4.6 - 8.0) 10/01/18 16:55 Ur Specific [place] 1.015 (1.005-1.030) 10/01/18 16:55 Urine Protein NEGATIVE mg/dL (NEGATIVE) 10/01/18 16:55 Urine Glucose (UA) >=1000 mg/dL (NEGATIVE) H 10/01/18 16:55 Urine Ketones TRACE mg/dL (NEGATIVE) 10/01/18 16:55 Urine Blood SMALL (NEGATIVE) H 10/01/18 16:55 Urine Nitrate NEGATIVE (NEGATIVE) 10/01/18 16:55 Urine Bilirubin NEGATIVE (NEGATIVE) 10/01/18 16:55 Urine Urobilinogen 0.2 E.U./dL (0.2 - 1.0) 10/01/18 16:55 Ur Leukocyte Esterase NEGATIVE (NEGATIVE) 10/01/18 16:55 Urine RBC NONE SEEN /hpf (0-5) 10/01/18 16:55 Urine WBC 2-5 /hpf (0-5) 10/01/18 16:55 Ur Epithelial Cells FEW /lpf (FEW) 10/01/18 16:55 Urine Bacteria FEW /hpf (NONE SEEN) 10/01/18 16:55 Valproic Acid 61.5 ug/mL (50.0-100.0) 10/09/18 07:30 RPR NONREACTIVE (NONREACTIVE) 09/21/18 13:30 - Physical Exam Vitals and I&O: Vital Signs Temp 99.5 F 10/15/18 20:03 Pulse 97 10/15/18 20:03 Resp 20 10/15/18 20:03 BP 141/80 10/15/18 20:03 Pulse Ox 95 10/15/18 20:03 Intake & Output 10/15/18 10/16/18 10/16/18 18:59 06:59 18:59 Intake Total 120 Balance 120 Intake: Oral 120 Other: # Voids 3 # Bowel Movements 0 Active Medications: Current Medications Acetaminophen (Tylenol) 650 mg PO Q4HR PRN PRN Reason: Mild Pain / Temp above 100 Stop: 11/20/18 15:14 Last Admin: 10/15/18 09:15 Dose: 650 mg Al Hydrox/Mg Hydrox/Simethicone (Maalox) 30 ml PO Q4HR PRN PRN Reason: GI DISTRESS Stop: 11/20/18 15:14 Last Admin: 10/16/18 06:15 Dose: 30 ml Amlodipine Besylate (Norvasc) 10 mg PO DAILY [facility] Stop: 11/21/18 10:59 Last Admin: 10/15/18 08:53 Dose: Not Given Baclofen (Lioresal) 10 mg PO TID [facility] Stop: 11/20/18 20:59 Last Admin: 10/15/18 20:52 Dose: 10 mg Donepezil HCl (Aricept) 10 mg PO DAILY [facility] Stop: 12/03/18 08:59 Last Admin: 10/15/18 08:52 Dose: 10 mg Ferrous Sulfate (Iron) 325 mg PO DAILY [facility] Stop: 11/21/18 08:59 Last Admin: 10/15/18 08:52 Dose: 325 mg Gabapentin (Neurontin) 300 mg PO TID [facility] Stop: 12/08/18 08:59 Last Admin: 10/15/18 20:52 Dose: 300 mg Glipizide (Glucotrol) 10 mg PO BID [facility] Stop: 11/23/18 16:59 Last Admin: 10/15/18 16:41 Dose: 10 mg Insulin Aspart (Novolog Insulin Sliding Scale) 0 units SUBQ ACHS [facility]; Protocol Stop: 11/20/18 20:59 Last Admin: 10/16/18 06:30 Dose: Not Given Insulin Detemir (Levemir Insulin) 12 units SUBQ [facility]; Protocol Stop: 11/30/18 20:59 Last Admin: 10/15/18 21:39 Dose: 12 units Levothyroxine Sodium (Synthroid) 0.025 mg PO QDAC [facility] Stop: 11/22/18 07:29 Last Admin: 10/16/18 06:30 Dose: 0.025 mg Lorazepam (Ativan) 0.5 mg PO Q4HR PRN; Protocol PRN Reason: Agitation Stop: 10/24/18 00:23 Last Admin: 10/15/18 22:42 Dose: 0.5 mg Magnesium Hydroxide (Milk Of Magnesia) 30 ml PO HS PRN PRN Reason: Constipation Metformin HCl (Glucophage) 1,000 mg PO BID [facility] Stop: 11/26/18 09:59 Last Admin: 10/15/18 16:42 Dose: 1,000 mg Multivitamins/Vitamin C (Theragran) 1 tab PO DAILY [facility] Stop: 11/21/18 08:59 Last Admin: 10/15/18 08:52 Dose: 1 tab Ondansetron HCl (Zofran Odt) 4 mg PO TID [facility] Stop: 11/20/18 20:59 Last Admin: 10/15/18 20:52 Dose: 4 mg Pantoprazole Sodium (Protonix) 40 mg PO QDAC [facility] Stop: 11/21/18 07:29 Last Admin: 10/16/18 06:30 Dose: 40 mg Patient Own Med- (Melatonin 5mg Tab) 1 PO HS [facility] Stop: 11/24/18 20:59 Last Admin: 10/15/18 20:51 Dose: 1 Pramipexole Dihydrochloride (Mirapex) 0.125 mg PO TID [facility] Stop: 11/21/18 08:59 Last Admin: 10/15/18 20:52 Dose: 0.125 mg Quetiapine Fumarate (Seroquel) 200 mg PO HS [facility] Stop: 12/08/18 20:59 Last Admin: 10/15/18 20:52 Dose: 200 mg Quetiapine Fumarate (Seroquel) 100 mg PO BID [facility] Stop: 12/08/18 08:59 Last Admin: 10/15/18 16:42 Dose: 100 mg Triamcinolone Acetonide (Kenalog 0.5%) 1 appl TP BID PRN PRN Reason: Rash Stop: 12/08/18 11:19 Last Admin: 10/13/18 09:56 Dose: 1 appl Valproate Sodium (Depakene) 500 mg PO TID [facility]; Protocol Stop: 12/03/18 08:59 Last Admin: 10/15/18 20:52 Dose: 500 mg General: demented HEENT: NC/AT, PERRLA, EOMI Neck: Supple, No JVD Lungs: CTAB Cardiovascular: RRR, with murmur Abdomen: soft, non-tender, +GT, positive bowel sound Neurological: no change Internal Medicine Assmt/Plan - Assessment Assessment: 1. ACUTE PSYCH DECOMPENSATION 2. HISTORY OD DEMENTIA WITH BEHAVIORAL D/O 3. HISTORY OF PARKINSON'S DISEASE 4. DM-2 5. HX OF ESSENTIAL HTN 6. ATAXIA 7. HX OF HYPOTHYROIDISM 8. HX OF GERD - Plan Plan: CONT WITH CURRENT INPT CARE AND MGT CONT WITH MEDS SCHEDULED CONT WITH GLIPIZIDE/METFORMIN/DETEMIR CONT WITH AMLODIPINE CONT WITH ARICEPT CONT WITH LEVOTHYROXINE CONT WITH PPI NEEDED Nutritional Asmnt/Malnutr-PDOC - Dietary Evaluation Malnutrition Findings (Please click <Entered> for more info): Nutritional Asmnt/Malnutrition Start: 09/22/18 14: 15 Text: Status: Complete Freq: Protocol: Document 09/22/18 14:17 [email or web address] (Rec: 09/22/18 14:24 [email or web address] TAM) Nutritional Asmnt/Malnutrition Patient General Information Nutritional Screening High Risk Diagnosis agitation Pertinent Medical Hx/Surgical Hx HTN, DM, bipolar, psychosis Subjective Information Glucose 227 at admission noted . Pt was seen sitting in adele chair in the dining room at time of visit, confused but able to answer questions. Pt said she was hungry, food preferences taken. Not able to provide diabetic education d/ t pt metnal status. Current Diet Order/ Nutrition Support [facility] soft chopped, ccho 60gm Pertinent Medications maalox, iron, glucotrol, novolog, synthroid, glucotrol, theragran, zofran, protonix Pertinent Labs 09/21 glucose 227, POC 174-288, alb 3.6 Nutritional Hx/Data Height 1.63 m Height (Calculated Centimeters) 162.6 Current Weight (lbs) 52.163 kg Weight (Calculated Kilograms) 52.2 Weight (Calculated Grams) 78758.1 [place] Body Weight 120 Body Mass Index (BMI) 19.7 Weight Status Approriate GI Symptoms GI Symptoms None Last BM not indicated Difficult in: None Food Allergies No Skin Integrity/Comment: area of concern, teetee Vergara Estimated Nutritional Goals BEE in Kcals: Using Current wt Calories/Kcals/Kg 25-30 Kcals Calculated 8105-8377 Protein: Using Current wt Protein g/k Protein Calculated 52 Fluid: ml 3884-1200 (1ml/kcal) Nutritional Problem 1. Problem Problem altered nutrition related labs Etiology hyperglycemia Signs/Symptoms: glucose 227, POC 335, 174, 288 Malnutrition Alert Is there a minimum of two criteria No selected? Query Text:Check all the applicable criteria. A minimum of two criteria are recommended for diagnosis of either severe or non-severe malnutrition. Malnutrition Related to Morbid Obesity Malnutrition related to morbid obesity No Intervention/Recommendation Comments 1. Continue with [facility] soft chopped ccho 60gm diet as ordered. 2. Monitor PO intake, wt, labs and skin integrity 3. F/U as moderate risk in 3-5 days, PO check 09/25 Expected Outcomes/Goals Expected Outcomes/Goals 1. PO intake to meet at least 75% of nutritional needs. 2. Wt stability, skin to remain intact, labs to approach WNL. Reviewed by DANIELLE Love RD
[2018-10-16] MEDS: Ferrous Sulfate 325 MG TAB PO SCH (11:03)
[2018-10-16] MEDS: Multivitamin Tab PO SCH (11:04)
[2018-10-16] MEDS: MELATONIN 5 MG PO SCH (20:44)
[2018-10-16] MEDS: Insulin Detemir 100 units/mL 10mL Vial SUBQ SCH ×2 (20:47→22:01)
[2018-10-17] MEDS: Pantoprazole 40 mg EC Tab PO SCH (06:38)
[2018-10-17] MEDS: INSULIN ASPART SLIDING SCALE 100 UNITS/ML UNIT SUBQ SCH ×4 (06:38→20:46)
[2018-10-17] MEDS: Levothyroxine 0.025 Mg Tab PO SCH (06:39)
[2018-10-17] MEDS: Multivitamin Tab PO SCH (08:33)
[2018-10-17] MEDS: Ferrous Sulfate 325 MG TAB PO SCH (08:34)
--- NOTE | 2018-10-17 10:08 | Internal Medicine Prog Note ---
Internal Medicine Subjective - Subjective Service Date: 10/17/18 (remains confused) Patient is:: asleep Per staff patient has:: no adverse event Internal Medicine Objective - Results Result Diagrams: 09/21/18 13:20 09/21/18 13:20 Recent Labs: Laboratory Last Values WBC 7.1 Th/cmm (4.8-10.8) 09/21/18 13:20 RBC 4.71 Mil/cmm (3.80-5.20) 09/21/18 13:20 Hgb 14.0 gm/dL (12-16) 09/21/18 13:20 Hct 42.6 % (41.0-60) 09/21/18 13:20 MCV 90.4 fl (81-100) 09/21/18 13:20 MCH 29.7 pg (27.0-31.0) 09/21/18 13:20 MCHC Differential 32.8 pg (28.0-36.0) 09/21/18 13:20 RDW 12.9 % (11.5-20.0) 09/21/18 13:20 Plt Count 218 Th/cmm (150-400) 09/21/18 13:20 MPV 7.6 fl 09/21/18 13:20 Neutrophils % 82.0 % (40.0-80.0) H 09/21/18 13:20 Lymphocytes % 9.5 % (20.0-50.0) L 09/21/18 13:20 Monocytes % 7.7 % (2.0-10.0) 09/21/18 13:20 Eosinophils % 0.6 % (0.0-5.0) 09/21/18 13:20 Basophils % 0.2 % (0.0-2.0) 09/21/18 13:20 Sodium 139 mEq/L (136-145) 09/21/18 13:20 Potassium 4.1 mEq/L (3.5-5.1) 09/21/18 13:20 Chloride 103 mEq/L (98-107) 09/21/18 13:20 Carbon Dioxide 27.0 mEq/L (21.0-31.0) 09/21/18 13:20 Anion Gap 13.1 (7.0-16.0) 09/21/18 13:20 BUN 21 mg/dL (7-25) 09/21/18 13:20 Creatinine 0.5 mg/dL (0.6-1.2) L 09/21/18 13:20 Est GFR ( Amer) TNP 09/21/18 13:20 Est GFR (Non-Af Amer) TNP 09/21/18 13:20 BUN/Creatinine Ratio 42.0 09/21/18 13:20 Glucose 227 mg/dL (70-105) H 09/21/18 13:20 POC Glucose 301 MG/DL (70 - 105) H 10/17/18 05:56 Calcium 8.9 mg/dL (8.6-10.3) 09/21/18 13:20 Total Bilirubin 0.4 mg/dL (0.3-1.0) 09/21/18 13:20 AST 14 U/L (13-39) 09/21/18 13:20 ALT 14 U/L (7-52) 09/21/18 13:20 Alkaline Phosphatase 105 U/L (34-104) H 09/21/18 13:20 Total Protein 6.2 gm/dL (6.0-8.3) 09/21/18 13:20 Albumin 3.6 gm/dL (3.7-5.3) L 09/21/18 13:20 Globulin 2.6 gm/dL 09/21/18 13:20 Albumin/Globulin Ratio 1.4 (1.0-1.8) 09/21/18 13:20 Triglycerides 94 mg/dL (<150) 09/21/18 13:20 Cholesterol 175 mg/dL (<200) 09/21/18 13:20 LDL Cholesterol Direct 112 mg/dL (75-193) 09/21/18 13:20 HDL Cholesterol 53 mg/dL (23-92) 09/21/18 13:20 TSH 8.33 uIU/ml (0.34-5.60) H 09/21/18 13:20 Urine Source CLEAN C 10/01/18 16:55 Urine Color YELLOW 10/01/18 16:55 Urine Clarity CLEAR (CLEAR) 10/01/18 16:55 Urine pH 6.5 (4.6 - 8.0) 10/01/18 16:55 Ur Specific [place] 1.015 (1.005-1.030) 10/01/18 16:55 Urine Protein NEGATIVE mg/dL (NEGATIVE) 10/01/18 16:55 Urine Glucose (UA) >=1000 mg/dL (NEGATIVE) H 10/01/18 16:55 Urine Ketones TRACE mg/dL (NEGATIVE) 10/01/18 16:55 Urine Blood SMALL (NEGATIVE) H 10/01/18 16:55 Urine Nitrate NEGATIVE (NEGATIVE) 10/01/18 16:55 Urine Bilirubin NEGATIVE (NEGATIVE) 10/01/18 16:55 Urine Urobilinogen 0.2 E.U./dL (0.2 - 1.0) 10/01/18 16:55 Ur Leukocyte Esterase NEGATIVE (NEGATIVE) 10/01/18 16:55 Urine RBC NONE SEEN /hpf (0-5) 10/01/18 16:55 Urine WBC 2-5 /hpf (0-5) 10/01/18 16:55 Ur Epithelial Cells FEW /lpf (FEW) 10/01/18 16:55 Urine Bacteria FEW /hpf (NONE SEEN) 10/01/18 16:55 Valproic Acid 61.5 ug/mL (50.0-100.0) 10/09/18 07:30 RPR NONREACTIVE (NONREACTIVE) 09/21/18 13:30 - Physical Exam Vitals and I&O: Vital Signs Temp 100.5 F 10/17/18 06:31 Pulse 98 10/17/18 08:35 Resp 20 10/17/18 06:31 BP 128/68 10/17/18 08:35 Pulse Ox 94 10/17/18 06:31 Intake & Output 10/16/18 10/17/18 10/17/18 18:59 06:59 18:59 Intake Total 1000 340 Balance 1000 340 Intake: Oral 1000 340 Other: # Voids 4 2 # Bowel Movements 1 0 Active Medications: Current Medications Acetaminophen (Tylenol) 650 mg PO Q4HR PRN PRN Reason: Mild Pain / Temp above 100 Stop: 11/20/18 15:14 Last Admin: 10/17/18 08:35 Dose: 650 mg Al Hydrox/Mg Hydrox/Simethicone (Maalox) 30 ml PO Q4HR PRN PRN Reason: GI DISTRESS Stop: 11/20/18 15:14 Last Admin: 10/16/18 14:36 Dose: 30 ml Amlodipine Besylate (Norvasc) 10 mg PO DAILY [facility] Stop: 11/21/18 10:59 Last Admin: 10/17/18 08:35 Dose: 10 mg Baclofen (Lioresal) 10 mg PO TID [facility] Stop: 11/20/18 20:59 Last Admin: 10/17/18 08:39 Dose: 10 mg Donepezil HCl (Aricept) 10 mg PO DAILY [facility] Stop: 12/03/18 08:59 Last Admin: 10/17/18 08:33 Dose: 10 mg Ferrous Sulfate (Iron) 325 mg PO DAILY [facility] Stop: 11/21/18 08:59 Last Admin: 10/17/18 08:34 Dose: 325 mg Gabapentin (Neurontin) 300 mg PO TID [facility] Stop: 12/08/18 08:59 Last Admin: 10/17/18 08:33 Dose: 300 mg Glipizide (Glucotrol) 10 mg PO BID [facility] Stop: 11/23/18 16:59 Last Admin: 10/17/18 08:33 Dose: 10 mg Insulin Aspart (Novolog Insulin Sliding Scale) 0 units SUBQ ACHS [facility]; Protocol Stop: 11/20/18 20:59 Last Admin: 10/17/18 06:38 Dose: 9 units Insulin Detemir (Levemir Insulin) 12 units SUBQ [facility]; Protocol Stop: 11/30/18 20:59 Last Admin: 10/16/18 22:01 Dose: 12 units Levothyroxine Sodium (Synthroid) 0.025 mg PO QDAC [facility] Stop: 11/22/18 07:29 Last Admin: 10/17/18 06:39 Dose: 0.025 mg Lorazepam (Ativan) 0.5 mg PO Q4HR PRN; Protocol PRN Reason: Agitation Stop: 10/24/18 00:23 Last Admin: 10/15/18 22:42 Dose: 0.5 mg Magnesium Hydroxide (Milk Of Magnesia) 30 ml PO HS PRN PRN Reason: Constipation Metformin HCl (Glucophage) 1,000 mg PO BID [facility] Stop: 11/26/18 09:59 Last Admin: 10/17/18 08:38 Dose: 1,000 mg Multivitamins/Vitamin C (Theragran) 1 tab PO DAILY [facility] Stop: 11/21/18 08:59 Last Admin: 10/17/18 08:33 Dose: 1 tab Ondansetron HCl (Zofran Odt) 4 mg PO TID [facility] Stop: 11/20/18 20:59 Last Admin: 10/17/18 08:33 Dose: 4 mg Pantoprazole Sodium (Protonix) 40 mg PO QDAC [facility] Stop: 11/21/18 07:29 Last Admin: 10/17/18 06:38 Dose: 40 mg Patient Own Med- (Melatonin 5mg Tab) 1 PO HS [facility] Stop: 11/24/18 20:59 Last Admin: 10/16/18 20:44 Dose: 1 Pramipexole Dihydrochloride (Mirapex) 0.125 mg PO TID [facility] Stop: 11/21/18 08:59 Last Admin: 10/17/18 08:32 Dose: 0.125 mg Quetiapine Fumarate (Seroquel) 200 mg PO HS [facility] Stop: 12/08/18 20:59 Last Admin: 10/16/18 20:43 Dose: 200 mg Quetiapine Fumarate (Seroquel) 100 mg PO BID [facility] Stop: 12/08/18 08:59 Last Admin: 10/17/18 08:34 Dose: 100 mg Triamcinolone Acetonide (Kenalog 0.5%) 1 appl TP BID PRN PRN Reason: Rash Stop: 12/08/18 11:19 Last Admin: 10/13/18 09:56 Dose: 1 appl Valproate Sodium (Depakene) 500 mg PO TID [facility]; Protocol Stop: 12/03/18 08:59 Last Admin: 10/17/18 08:32 Dose: 500 mg General: demented HEENT: NC/AT, PERRLA, EOMI Neck: Supple, No JVD Lungs: CTAB Cardiovascular: RRR, with murmur Abdomen: soft, non-tender, +GT, positive bowel sound Neurological: no change Internal Medicine Assmt/Plan - Assessment Assessment: 1. ACUTE PSYCH DECOMPENSATION 2. HISTORY OD DEMENTIA WITH BEHAVIORAL D/O 3. HISTORY OF PARKINSON'S DISEASE 4. DM-2 5. HX OF ESSENTIAL HTN 6. ATAXIA 7. HX OF HYPOTHYROIDISM 8. HX OF GERD - Plan Plan: CONT WITH CURRENT INPT CARE AND MGT CONT WITH MEDS SCHEDULED CONT WITH GLIPIZIDE/METFORMIN/DETEMIR CONT WITH AMLODIPINE CONT WITH ARICEPT CONT WITH LEVOTHYROXINE CONT WITH PPI NEEDED Nutritional Asmnt/Malnutr-PDOC - Dietary Evaluation Malnutrition Findings (Please click <Entered> for more info): Nutritional Asmnt/Malnutrition Start: 09/22/18 14: 15 Text: Status: Complete Freq: Protocol: Document 09/22/18 14:17 [email or web address] (Rec: 09/22/18 14:24 [email or web address] TAM) Nutritional Asmnt/Malnutrition Patient General Information Nutritional Screening High Risk Diagnosis agitation Pertinent Medical Hx/Surgical Hx HTN, DM, bipolar, psychosis Subjective Information Glucose 227 at admission noted . Pt was seen sitting in adele chair in the dining room at time of visit, confused but able to answer questions. Pt said she was hungry, food preferences taken. Not able to provide diabetic education d/ t pt metnal status. Current Diet Order/ Nutrition Support [facility] soft chopped, ccho 60gm Pertinent Medications maalox, iron, glucotrol, novolog, synthroid, glucotrol, theragran, zofran, protonix Pertinent Labs 09/21 glucose 227, POC 174-288, alb 3.6 Nutritional Hx/Data Height 1.63 m Height (Calculated Centimeters) 162.6 Current Weight (lbs) 52.163 kg Weight (Calculated Kilograms) 52.2 Weight (Calculated Grams) 22699.1 [place] Body Weight 120 Body Mass Index (BMI) 19.7 Weight Status Approriate GI Symptoms GI Symptoms None Last BM not indicated Difficult in: None Food Allergies No Skin Integrity/Comment: area of concern, teetee 20 Estimated Nutritional Goals BEE in Kcals: Using Current wt Calories/Kcals/Kg 25-30 Kcals Calculated 4877-3135 Protein: Using Current wt Protein g/k Protein Calculated 52 Fluid: ml 3523-9795 (1ml/kcal) Nutritional Problem 1. Problem Problem altered nutrition related labs Etiology hyperglycemia Signs/Symptoms: glucose 227, POC 335, 174, 288 Malnutrition Alert Is there a minimum of two criteria No selected? Query Text:Check all the applicable criteria. A minimum of two criteria are recommended for diagnosis of either severe or non-severe malnutrition. Malnutrition Related to Morbid Obesity Malnutrition related to morbid obesity No Intervention/Recommendation Comments 1. Continue with [facility] soft chopped ccho 60gm diet as ordered. 2. Monitor PO intake, wt, labs and skin integrity 3. F/U as moderate risk in 3-5 days, PO check 09/25 Expected Outcomes/Goals Expected Outcomes/Goals 1. PO intake to meet at least 75% of nutritional needs. 2. Wt stability, skin to remain intact, labs to approach WNL. Reviewed by DANIELLE Love RD
--- NOTE | 2018-10-17 14:21 | Progress Notes ---
DATE: 10/16/2018 SUBJECTIVE: A 73-year-old female admitted to the hospital under the care of Dr. Taylor. The patient was agitated, irritable, and angry. The patient has been in the hospital for quite some time. She is better oriented, has a general idea of what is going on, states she is supposed to go to a half-way facility. Per Dr. Banks, still some bouts of irritability, paranoia, confusion, generally calm at this time, fair sleep, fair appetite. MEDICATIONS: Reviewed. ASSESSMENT: The patient remains symptomatic. Ongoing safety concerns given her symptoms as noted. Per social sciences chair documentation, the patient has been accepted to [facility]. We will continue to monitor given ongoing symptoms. The patient will benefit from further hospitalization. [facility]# [id number]
[2018-10-17] MEDS: MELATONIN 5 MG PO SCH (20:32)
[2018-10-17] MEDS: Maalox 30 mL Cup PO PRN (20:34)
[2018-10-17] MEDS: Insulin Detemir 100 units/mL 10mL Vial SUBQ SCH (20:44)
[2018-10-18] MEDS: Pantoprazole 40 mg EC Tab PO SCH (06:52)
[2018-10-18] MEDS: Levothyroxine 0.025 Mg Tab PO SCH (06:52)
[2018-10-18 08:00] LABS: HEMATOCRIT 38.2 % (41.0-60); HEMOGLOBIN 12.3 gm/dL (12-16); MEAN CELL VOLUME 92.1 fl (81-100); MEAN CORPUSCULAR HEMOGLOBIN 29.7 pg (27.0-31.0); MEAN CORPUSCULAR HGB CONC 32.3 pg (28.0-36.0); MEAN PLATELET VOLUME 8.2 fl; PLATELET COUNT 143 Th/cmm (150-400); RED BLOOD COUNT 4.15 Mil/cmm (3.80-5.20); WHITE BLOOD COUNT 4.4 Th/cmm (4.8-10.8)
[2018-10-18 08:12] LABS: ANION GAP 12.4 (7.0-16.0); BUN - UREA NITROGEN 23 mg/dL (7-25); CARBON DIOXIDE 26.7 mEq/L (21.0-31.0); CHLORIDE 104 mEq/L (98-107); CREATININE - SERUM 0.6 mg/dL (0.6-1.2); GLUCOSE 131 mg/dL (70-105); MAGNESIUM 2.3 mg/dL (1.9-2.7); POTASSIUM SERUM 4.1 mEq/L (3.5-5.1); SODIUM SERUM 139 mEq/L (136-145)
[2018-10-18 08:32] LABS: BAND NEUTROPHILE 9 % (0-10); BASOPHIL 0 % (0-3); EOSINOPHIL 0 % (0-5); LYMPHOCYTE 14 % (20-50); MONOCYTE 17 % (2-10); NEUTROPHILS 60 % (40-80)
--- NOTE | 2018-10-18 09:30 | Internal Medicine Prog Note ---
Internal Medicine Subjective - Subjective Service Date: 10/18/18 Patient is:: awake Per staff patient has:: no adverse event Internal Medicine Objective - Results Result Diagrams: 10/18/18 07:10 10/18/18 07:10 Recent Labs: Laboratory Last Values WBC 4.4 Th/cmm (4.8-10.8) L 10/18/18 07:10 RBC 4.15 Mil/cmm (3.80-5.20) 10/18/18 07:10 Hgb 12.3 gm/dL (12-16) 10/18/18 07:10 Hct 38.2 % (41.0-60) L 10/18/18 07:10 MCV 92.1 fl (81-100) 10/18/18 07:10 MCH 29.7 pg (27.0-31.0) 10/18/18 07:10 MCHC Differential 32.3 pg (28.0-36.0) 10/18/18 07:10 RDW 14.0 % (11.5-20.0) 10/18/18 07:10 Plt Count 143 Th/cmm (150-400) L 10/18/18 07:10 MPV 8.2 fl 10/18/18 07:10 Add Manual Diff YES 10/18/18 07:10 Neutrophils % 82.0 % (40.0-80.0) H 09/21/18 13:20 Band Neutrophils % 9 % (0-10) 10/18/18 07:10 Lymphocytes % 9.5 % (20.0-50.0) L 09/21/18 13:20 Monocytes % 7.7 % (2.0-10.0) 09/21/18 13:20 Eosinophils % 0.6 % (0.0-5.0) 09/21/18 13:20 Basophils % 0.2 % (0.0-2.0) 09/21/18 13:20 Neutrophils (Manual) 60 % (40-80) 10/18/18 07:10 Lymphocytes 14 % (20-50) L 10/18/18 07:10 Monocytes 17 % (2-10) H 10/18/18 07:10 Eosinophils 0 % (0-5) 10/18/18 07:10 Basophils 0 % (0-3) 10/18/18 07:10 Sodium 139 mEq/L (136-145) 10/18/18 07:10 Potassium 4.1 mEq/L (3.5-5.1) 10/18/18 07:10 Chloride 104 mEq/L (98-107) 10/18/18 07:10 Carbon Dioxide 26.7 mEq/L (21.0-31.0) 10/18/18 07:10 Anion Gap 12.4 (7.0-16.0) 10/18/18 07:10 BUN 23 mg/dL (7-25) 10/18/18 07:10 Creatinine 0.6 mg/dL (0.6-1.2) 10/18/18 07:10 Est GFR ( Amer) TNP 10/18/18 07:10 Est GFR (Non-Af Amer) TNP 10/18/18 07:10 BUN/Creatinine Ratio 38.3 10/18/18 07:10 Glucose 131 mg/dL (70-105) H 10/18/18 07:10 POC Glucose 227 MG/DL (70 - 105) H 10/17/18 16:35 Calcium 8.0 mg/dL (8.6-10.3) L 10/18/18 07:10 Magnesium 2.3 mg/dL (1.9-2.7) 10/18/18 07:10 Total Bilirubin 0.4 mg/dL (0.3-1.0) 09/21/18 13:20 AST 14 U/L (13-39) 09/21/18 13:20 ALT 14 U/L (7-52) 09/21/18 13:20 Alkaline Phosphatase 105 U/L (34-104) H 09/21/18 13:20 Total Protein 6.2 gm/dL (6.0-8.3) 09/21/18 13:20 Albumin 3.6 gm/dL (3.7-5.3) L 09/21/18 13:20 Globulin 2.6 gm/dL 09/21/18 13:20 Albumin/Globulin Ratio 1.4 (1.0-1.8) 09/21/18 13:20 Triglycerides 94 mg/dL (<150) 09/21/18 13:20 Cholesterol 175 mg/dL (<200) 09/21/18 13:20 LDL Cholesterol Direct 112 mg/dL (75-193) 09/21/18 13:20 HDL Cholesterol 53 mg/dL (23-92) 09/21/18 13:20 TSH 8.33 uIU/ml (0.34-5.60) H 09/21/18 13:20 Urine Source CLEAN C 10/01/18 16:55 Urine Color YELLOW 10/01/18 16:55 Urine Clarity CLEAR (CLEAR) 10/01/18 16:55 Urine pH 6.5 (4.6 - 8.0) 10/01/18 16:55 Ur Specific [place] 1.015 (1.005-1.030) 10/01/18 16:55 Urine Protein NEGATIVE mg/dL (NEGATIVE) 10/01/18 16:55 Urine Glucose (UA) >=1000 mg/dL (NEGATIVE) H 10/01/18 16:55 Urine Ketones TRACE mg/dL (NEGATIVE) 10/01/18 16:55 Urine Blood SMALL (NEGATIVE) H 10/01/18 16:55 Urine Nitrate NEGATIVE (NEGATIVE) 10/01/18 16:55 Urine Bilirubin NEGATIVE (NEGATIVE) 10/01/18 16:55 Urine Urobilinogen 0.2 E.U./dL (0.2 - 1.0) 10/01/18 16:55 Ur Leukocyte Esterase NEGATIVE (NEGATIVE) 10/01/18 16:55 Urine RBC NONE SEEN /hpf (0-5) 10/01/18 16:55 Urine WBC 2-5 /hpf (0-5) 10/01/18 16:55 Ur Epithelial Cells FEW /lpf (FEW) 10/01/18 16:55 Urine Bacteria FEW /hpf (NONE SEEN) 10/01/18 16:55 Valproic Acid 61.5 ug/mL (50.0-100.0) 10/09/18 07:30 RPR NONREACTIVE (NONREACTIVE) 09/21/18 13:30 - Physical Exam Vitals and I&O: Vital Signs Temp 98 F 10/18/18 06:37 Pulse 81 10/18/18 06:37 Resp 20 10/18/18 06:37 BP 128/63 10/18/18 06:37 Pulse Ox 99 10/18/18 06:37 Intake & Output 10/17/18 10/18/18 10/18/18 18:59 06:59 18:59 Intake Total 240 Balance 240 Intake: Oral 240 Other: # Voids 3 # Bowel Movements 0 Active Medications: Current Medications Acetaminophen (Tylenol) 650 mg PO Q4HR PRN PRN Reason: Mild Pain / Temp above 100 Stop: 11/20/18 15:14 Last Admin: 10/18/18 03:22 Dose: 650 mg Al Hydrox/Mg Hydrox/Simethicone (Maalox) 30 ml PO Q4HR PRN PRN Reason: GI DISTRESS Stop: 11/20/18 15:14 Last Admin: 10/17/18 20:34 Dose: 30 ml Amlodipine Besylate (Norvasc) 10 mg PO DAILY [facility] Stop: 11/21/18 10:59 Last Admin: 10/17/18 08:35 Dose: 10 mg Baclofen (Lioresal) 10 mg PO TID [facility] Stop: 11/20/18 20:59 Last Admin: 10/17/18 20:30 Dose: 10 mg Donepezil HCl (Aricept) 10 mg PO DAILY [facility] Stop: 12/03/18 08:59 Last Admin: 10/17/18 08:33 Dose: 10 mg Ferrous Sulfate (Iron) 325 mg PO DAILY [facility] Stop: 11/21/18 08:59 Last Admin: 10/17/18 08:34 Dose: 325 mg Gabapentin (Neurontin) 300 mg PO TID [facility] Stop: 12/08/18 08:59 Last Admin: 10/17/18 20:31 Dose: 300 mg Glipizide (Glucotrol) 10 mg PO BID [facility] Stop: 11/23/18 16:59 Last Admin: 10/17/18 16:46 Dose: 10 mg Insulin Aspart (Novolog Insulin Sliding Scale) 0 units SUBQ ACHS [facility]; Protocol Stop: 11/20/18 20:59 Last Admin: 10/17/18 20:46 Dose: 5 units Insulin Detemir (Levemir Insulin) 12 units SUBQ HS [facility]; Protocol Stop: 11/30/18 20:59 Last Admin: 10/17/18 20:44 Dose: 12 units Levothyroxine Sodium (Synthroid) 0.025 mg PO QDAC [facility] Stop: 11/22/18 07:29 Last Admin: 10/18/18 06:52 Dose: 0.025 mg Lorazepam (Ativan) 0.5 mg PO Q4HR PRN; Protocol PRN Reason: Agitation Stop: 10/24/18 00:23 Last Admin: 10/15/18 22:42 Dose: 0.5 mg Magnesium Hydroxide (Milk Of Magnesia) 30 ml PO HS PRN PRN Reason: Constipation Metformin HCl (Glucophage) 1,000 mg PO BID [facility] Stop: 11/26/18 09:59 Last Admin: 10/17/18 16:46 Dose: 1,000 mg Multivitamins/Vitamin C (Theragran) 1 tab PO DAILY [facility] Stop: 11/21/18 08:59 Last Admin: 10/17/18 08:33 Dose: 1 tab Ondansetron HCl (Zofran Odt) 4 mg PO TID [facility] Stop: 11/20/18 20:59 Last Admin: 10/17/18 20:31 Dose: 4 mg Pantoprazole Sodium (Protonix) 40 mg PO QDAC [facility] Stop: 11/21/18 07:29 Last Admin: 10/18/18 06:52 Dose: 40 mg Patient Own Med- (Melatonin 5mg Tab) 1 PO HS [facility] Stop: 11/24/18 20:59 Last Admin: 10/17/18 20:32 Dose: 1 Pramipexole Dihydrochloride (Mirapex) 0.125 mg PO TID [facility] Stop: 11/21/18 08:59 Last Admin: 10/17/18 20:32 Dose: 0.125 mg Quetiapine Fumarate (Seroquel) 200 mg PO HS [facility] Stop: 12/08/18 20:59 Last Admin: 10/17/18 20:33 Dose: 200 mg Quetiapine Fumarate (Seroquel) 100 mg PO BID [facility] Stop: 12/08/18 08:59 Last Admin: 10/17/18 16:46 Dose: 100 mg Triamcinolone Acetonide (Kenalog 0.5%) 1 appl TP BID PRN PRN Reason: Rash Stop: 12/08/18 11:19 Last Admin: 10/13/18 09:56 Dose: 1 appl Valproate Sodium (Depakene) 500 mg PO TID [facility]; Protocol Stop: 12/03/18 08:59 Last Admin: 10/17/18 20:34 Dose: 500 mg General: demented HEENT: NC/AT, PERRLA, EOMI Neck: Supple, No JVD Lungs: CTAB Cardiovascular: RRR, with murmur Abdomen: soft, non-tender, +GT, positive bowel sound Neurological: no change Internal Medicine Assmt/Plan - Assessment Assessment: 1. ACUTE PSYCH DECOMPENSATION 2. HISTORY OD DEMENTIA WITH BEHAVIORAL D/O 3. HISTORY OF PARKINSON'S DISEASE 4. DM-2 5. HX OF ESSENTIAL HTN 6. ATAXIA 7. HX OF HYPOTHYROIDISM 8. HX OF GERD - Plan Plan: CONT WITH CURRENT INPT CARE AND MGT CONT WITH MEDS SCHEDULED CONT WITH GLIPIZIDE/METFORMIN/DETEMIR CONT WITH AMLODIPINE CONT WITH ARICEPT CONT WITH LEVOTHYROXINE CONT WITH PPI NEEDED Nutritional Asmnt/Malnutr-PDOC - Dietary Evaluation Malnutrition Findings (Please click <Entered> for more info): Nutritional Asmnt/Malnutrition Start: 09/22/18 14: 15 Text: Status: Complete Freq: Protocol: Document 09/22/18 14:17 [email or web address] (Rec: 09/22/18 14:24 [email or web address] TAM) Nutritional Asmnt/Malnutrition Patient General Information Nutritional Screening High Risk Diagnosis agitation Pertinent Medical Hx/Surgical Hx HTN, DM, bipolar, psychosis Subjective Information Glucose 227 at admission noted . Pt was seen sitting in adele chair in the dining room at time of visit, confused but able to answer questions. Pt said she was hungry, food preferences taken. Not able to provide diabetic education d/ t pt metnal status. Current Diet Order/ Nutrition Support [facility] soft chopped, ccho 60gm Pertinent Medications maalox, iron, glucotrol, novolog, synthroid, glucotrol, theragran, zofran, protonix Pertinent Labs 09/21 glucose 227, POC 174-288, alb 3.6 Nutritional Hx/Data Height 1.63 m Height (Calculated Centimeters) 162.6 Current Weight (lbs) 52.163 kg Weight (Calculated Kilograms) 52.2 Weight (Calculated Grams) 00313.1 [place] Body Weight 120 Body Mass Index (BMI) 19.7 Weight Status Approriate GI Symptoms GI Symptoms None Last BM not indicated Difficult in: None Food Allergies No Skin Integrity/Comment: area of concernteetee Estimated Nutritional Goals BEE in Kcals: Using Current wt Calories/Kcals/Kg 25-30 Kcals Calculated 7115-9069 Protein: Using Current wt Protein g/k Protein Calculated 52 Fluid: ml 1024-9086 (1ml/kcal) Nutritional Problem 1. Problem Problem altered nutrition related labs Etiology hyperglycemia Signs/Symptoms: glucose 227, POC 335, 174, 288 Malnutrition Alert Is there a minimum of two criteria No selected? Query Text:Check all the applicable criteria. A minimum of two criteria are recommended for diagnosis of either severe or non-severe malnutrition. Malnutrition Related to Morbid Obesity Malnutrition related to morbid obesity No Intervention/Recommendation Comments 1. Continue with [facility] soft chopped ccho 60gm diet as ordered. 2. Monitor PO intake, wt, labs and skin integrity 3. F/U as moderate risk in 3-5 days, PO check 09/25 Expected Outcomes/Goals Expected Outcomes/Goals 1. PO intake to meet at least 75% of nutritional needs. 2. Wt stability, skin to remain intact, labs to approach WNL. Reviewed by DANIELLE Love RD
[2018-10-18] MEDS: Ferrous Sulfate 325 MG TAB PO SCH (09:35)
[2018-10-18] MEDS: Multivitamin Tab PO SCH (09:36)
[2018-10-18] MEDS: INSULIN ASPART SLIDING SCALE 100 UNITS/ML UNIT SUBQ SCH ×3 (12:00→20:54)
--- NOTE | 2018-10-18 12:45 | Progress Notes ---
DATE: 10/17/2018 SUBJECTIVE: A 73-year-old female admitted to hospital, has been here for quite some time. The patient is anxious, seems to be doing better, calm, likely at her baseline. Sleeping well, eating well with some forgetfulness noted, but generally calm, sometimes irritable, no agitation, no escalation of behaviors, unable to care for basic needs. We are currently pending placement. Safe discharge plan. Medications were noted. ASSESSMENT: The patient likely at her baseline. Taking medications. No behavioral disturbances. We will await a safe discharge plan. JOB# [id number]
[2018-10-18] MEDS: Maalox 30 mL Cup PO PRN (14:44)
[2018-10-18] MEDS: MELATONIN 5 MG PO SCH (20:55)
[2018-10-18] MEDS: Insulin Detemir 100 units/mL 10mL Vial SUBQ SCH (21:02)
[2018-10-19] MEDS: Pantoprazole 40 mg EC Tab PO SCH (06:36)
[2018-10-19] MEDS: Levothyroxine 0.025 Mg Tab PO SCH (06:36)
[2018-10-19] MEDS: INSULIN ASPART SLIDING SCALE 100 UNITS/ML UNIT SUBQ SCH ×3 (06:43→17:46)
[2018-10-19] MEDS: Ferrous Sulfate 325 MG TAB PO SCH (08:47)
[2018-10-19] MEDS: Multivitamin Tab PO SCH (08:48)
--- NOTE | 2018-10-19 11:25 | Internal Medicine Prog Note ---
Internal Medicine Subjective - Subjective Service Date: 10/19/18 Patient is:: awake Per staff patient has:: no adverse event Internal Medicine Objective - Results Result Diagrams: 10/18/18 07:10 10/18/18 07:10 Recent Labs: Laboratory Last Values WBC 4.4 Th/cmm (4.8-10.8) L 10/18/18 07:10 RBC 4.15 Mil/cmm (3.80-5.20) 10/18/18 07:10 Hgb 12.3 gm/dL (12-16) 10/18/18 07:10 Hct 38.2 % (41.0-60) L 10/18/18 07:10 MCV 92.1 fl (81-100) 10/18/18 07:10 MCH 29.7 pg (27.0-31.0) 10/18/18 07:10 MCHC Differential 32.3 pg (28.0-36.0) 10/18/18 07:10 RDW 14.0 % (11.5-20.0) 10/18/18 07:10 Plt Count 143 Th/cmm (150-400) L 10/18/18 07:10 MPV 8.2 fl 10/18/18 07:10 Add Manual Diff YES 10/18/18 07:10 Neutrophils % 82.0 % (40.0-80.0) H 09/21/18 13:20 Band Neutrophils % 9 % (0-10) 10/18/18 07:10 Lymphocytes % 9.5 % (20.0-50.0) L 09/21/18 13:20 Monocytes % 7.7 % (2.0-10.0) 09/21/18 13:20 Eosinophils % 0.6 % (0.0-5.0) 09/21/18 13:20 Basophils % 0.2 % (0.0-2.0) 09/21/18 13:20 Neutrophils (Manual) 60 % (40-80) 10/18/18 07:10 Lymphocytes 14 % (20-50) L 10/18/18 07:10 Monocytes 17 % (2-10) H 10/18/18 07:10 Eosinophils 0 % (0-5) 10/18/18 07:10 Basophils 0 % (0-3) 10/18/18 07:10 Sodium 139 mEq/L (136-145) 10/18/18 07:10 Potassium 4.1 mEq/L (3.5-5.1) 10/18/18 07:10 Chloride 104 mEq/L (98-107) 10/18/18 07:10 Carbon Dioxide 26.7 mEq/L (21.0-31.0) 10/18/18 07:10 Anion Gap 12.4 (7.0-16.0) 10/18/18 07:10 BUN 23 mg/dL (7-25) 10/18/18 07:10 Creatinine 0.6 mg/dL (0.6-1.2) 10/18/18 07:10 Est GFR ( Amer) TNP 10/18/18 07:10 Est GFR (Non-Af Amer) TNP 10/18/18 07:10 BUN/Creatinine Ratio 38.3 10/18/18 07:10 Glucose 131 mg/dL (70-105) H 10/18/18 07:10 POC Glucose 180 MG/DL (70 - 105) H 10/18/18 17:06 Calcium 8.0 mg/dL (8.6-10.3) L 10/18/18 07:10 Magnesium 2.3 mg/dL (1.9-2.7) 10/18/18 07:10 Total Bilirubin 0.4 mg/dL (0.3-1.0) 09/21/18 13:20 AST 14 U/L (13-39) 09/21/18 13:20 ALT 14 U/L (7-52) 09/21/18 13:20 Alkaline Phosphatase 105 U/L (34-104) H 09/21/18 13:20 Total Protein 6.2 gm/dL (6.0-8.3) 09/21/18 13:20 Albumin 3.6 gm/dL (3.7-5.3) L 09/21/18 13:20 Globulin 2.6 gm/dL 09/21/18 13:20 Albumin/Globulin Ratio 1.4 (1.0-1.8) 09/21/18 13:20 Triglycerides 94 mg/dL (<150) 09/21/18 13:20 Cholesterol 175 mg/dL (<200) 09/21/18 13:20 LDL Cholesterol Direct 112 mg/dL (75-193) 09/21/18 13:20 HDL Cholesterol 53 mg/dL (23-92) 09/21/18 13:20 TSH 8.33 uIU/ml (0.34-5.60) H 09/21/18 13:20 Urine Source CLEAN C 10/01/18 16:55 Urine Color YELLOW 10/01/18 16:55 Urine Clarity CLEAR (CLEAR) 10/01/18 16:55 Urine pH 6.5 (4.6 - 8.0) 10/01/18 16:55 Ur Specific [place] 1.015 (1.005-1.030) 10/01/18 16:55 Urine Protein NEGATIVE mg/dL (NEGATIVE) 10/01/18 16:55 Urine Glucose (UA) >=1000 mg/dL (NEGATIVE) H 10/01/18 16:55 Urine Ketones TRACE mg/dL (NEGATIVE) 10/01/18 16:55 Urine Blood SMALL (NEGATIVE) H 10/01/18 16:55 Urine Nitrate NEGATIVE (NEGATIVE) 10/01/18 16:55 Urine Bilirubin NEGATIVE (NEGATIVE) 10/01/18 16:55 Urine Urobilinogen 0.2 E.U./dL (0.2 - 1.0) 10/01/18 16:55 Ur Leukocyte Esterase NEGATIVE (NEGATIVE) 10/01/18 16:55 Urine RBC NONE SEEN /hpf (0-5) 10/01/18 16:55 Urine WBC 2-5 /hpf (0-5) 10/01/18 16:55 Ur Epithelial Cells FEW /lpf (FEW) 10/01/18 16:55 Urine Bacteria FEW /hpf (NONE SEEN) 10/01/18 16:55 Valproic Acid 61.5 ug/mL (50.0-100.0) 10/09/18 07:30 RPR NONREACTIVE (NONREACTIVE) 09/21/18 13:30 - Physical Exam Vitals and I&O: Vital Signs Temp 97.5 F 10/19/18 06:22 Pulse 95 10/19/18 06:22 Resp 19 10/19/18 10:00 BP 119/67 10/19/18 06:22 Pulse Ox 95 10/19/18 06:22 Intake & Output 10/18/18 10/19/18 10/19/18 18:59 06:59 18:59 Intake Total 120 Balance 120 Intake: Oral 120 Other: # Voids 3 3 # Bowel Movements 0 Active Medications: Current Medications Acetaminophen (Tylenol) 650 mg PO Q4HR PRN PRN Reason: Mild Pain / Temp above 100 Stop: 11/20/18 15:14 Last Admin: 10/18/18 14:45 Dose: 650 mg Al Hydrox/Mg Hydrox/Simethicone (Maalox) 30 ml PO Q4HR PRN PRN Reason: GI DISTRESS Stop: 11/20/18 15:14 Last Admin: 10/18/18 14:44 Dose: 30 ml Amlodipine Besylate (Norvasc) 10 mg PO DAILY [facility] Stop: 11/21/18 10:59 Last Admin: 10/19/18 08:47 Dose: Not Given Baclofen (Lioresal) 10 mg PO TID [facility] Stop: 11/20/18 20:59 Last Admin: 10/19/18 08:47 Dose: Not Given Donepezil HCl (Aricept) 10 mg PO DAILY [facility] Stop: 12/03/18 08:59 Last Admin: 10/19/18 08:47 Dose: Not Given Ferrous Sulfate (Iron) 325 mg PO DAILY [facility] Stop: 11/21/18 08:59 Last Admin: 10/19/18 08:47 Dose: Not Given Gabapentin (Neurontin) 300 mg PO TID [facility] Stop: 12/08/18 08:59 Last Admin: 10/19/18 08:47 Dose: Not Given Glipizide (Glucotrol) 10 mg PO BID [facility] Stop: 11/23/18 16:59 Last Admin: 10/19/18 08:47 Dose: Not Given Insulin Aspart (Novolog Insulin Sliding Scale) 0 units SUBQ ACHS [facility]; Protocol Stop: 11/20/18 20:59 Last Admin: 10/19/18 06:43 Dose: Not Given Insulin Detemir (Levemir Insulin) 12 units SUBQ HS [facility]; Protocol Stop: 11/30/18 20:59 Last Admin: 10/18/18 21:02 Dose: Not Given Levothyroxine Sodium (Synthroid) 0.025 mg PO QDAC [facility] Stop: 11/22/18 07:29 Last Admin: 10/19/18 06:36 Dose: Not Given Lorazepam (Ativan) 0.5 mg PO Q4HR PRN; Protocol PRN Reason: Agitation Stop: 10/24/18 00:23 Last Admin: 10/15/18 22:42 Dose: 0.5 mg Magnesium Hydroxide (Milk Of Magnesia) 30 ml PO HS PRN PRN Reason: Constipation Metformin HCl (Glucophage) 1,000 mg PO BID [facility] Stop: 11/26/18 09:59 Last Admin: 10/19/18 08:48 Dose: Not Given Multivitamins/Vitamin C (Theragran) 1 tab PO DAILY [facility] Stop: 11/21/18 08:59 Last Admin: 10/19/18 08:48 Dose: Not Given Ondansetron HCl (Zofran Odt) 4 mg PO TID [facility] Stop: 11/20/18 20:59 Last Admin: 10/19/18 08:52 Dose: 4 mg Pantoprazole Sodium (Protonix) 40 mg PO QDAC [facility] Stop: 11/21/18 07:29 Last Admin: 10/19/18 06:36 Dose: Not Given Patient Own Med- (Melatonin 5mg Tab) 1 PO HS [facility] Stop: 11/24/18 20:59 Last Admin: 10/18/18 20:55 Dose: 1 Pramipexole Dihydrochloride (Mirapex) 0.125 mg PO TID [facility] Stop: 11/21/18 08:59 Last Admin: 10/19/18 08:48 Dose: Not Given Quetiapine Fumarate (Seroquel) 200 mg PO HS [facility] Stop: 12/08/18 20:59 Last Admin: 10/18/18 20:56 Dose: 200 mg Quetiapine Fumarate (Seroquel) 100 mg PO BID [facility] Stop: 12/08/18 08:59 Last Admin: 10/19/18 08:48 Dose: Not Given Triamcinolone Acetonide (Kenalog 0.5%) 1 appl TP BID PRN PRN Reason: Rash Stop: 12/08/18 11:19 Last Admin: 10/13/18 09:56 Dose: 1 appl Valproate Sodium (Depakene) 500 mg PO TID [facility]; Protocol Stop: 12/03/18 08:59 Last Admin: 10/19/18 08:48 Dose: Not Given General: demented HEENT: NC/AT, PERRLA, EOMI Neck: Supple, No JVD Lungs: CTAB Cardiovascular: RRR, with murmur Abdomen: soft, non-tender, +GT, positive bowel sound Neurological: no change Internal Medicine Assmt/Plan - Assessment Assessment: 1. ACUTE PSYCH DECOMPENSATION 2. HISTORY OD DEMENTIA WITH BEHAVIORAL D/O 3. HISTORY OF PARKINSON'S DISEASE 4. DM-2 5. HX OF ESSENTIAL HTN 6. ATAXIA 7. HX OF HYPOTHYROIDISM 8. HX OF GERD - Plan Plan: CONT WITH CURRENT INPT CARE AND MGT CONT WITH MEDS SCHEDULED CONT WITH GLIPIZIDE/METFORMIN/DETEMIR CONT WITH AMLODIPINE CONT WITH ARICEPT CONT WITH LEVOTHYROXINE CONT WITH PPI NEEDED Nutritional Asmnt/Malnutr-PDOC - Dietary Evaluation Malnutrition Findings (Please click <Entered> for more info): Nutritional Asmnt/Malnutrition Start: 09/22/18 14: 15 Text: Status: Complete Freq: Protocol: Document 09/22/18 14:17 [email or web address] (Rec: 09/22/18 14:24 [email or web address] TAM) Nutritional Asmnt/Malnutrition Patient General Information Nutritional Screening High Risk Diagnosis agitation Pertinent Medical Hx/Surgical Hx HTN, DM, bipolar, psychosis Subjective Information Glucose 227 at admission noted . Pt was seen sitting in adele chair in the dining room at time of visit, confused but able to answer questions. Pt said she was hungry, food preferences taken. Not able to provide diabetic education d/ t pt metnal status. Current Diet Order/ Nutrition Support mech soft chopped, ccho 60gm Pertinent Medications maalox, iron, glucotrol, novolog, synthroid, glucotrol, theragran, zofran, protonix Pertinent Labs 09/21 glucose 227, POC 174-288, alb 3.6 Nutritional Hx/Data Height 1.63 m Height (Calculated Centimeters) 162.6 Current Weight (lbs) 52.163 kg Weight (Calculated Kilograms) 52.2 Weight (Calculated Grams) 92237.1 [place] Body Weight 120 Body Mass Index (BMI) 19.7 Weight Status Approriate GI Symptoms GI Symptoms None Last BM not indicated Difficult in: None Food Allergies No Skin Integrity/Comment: area of concernteetee Estimated Nutritional Goals BEE in Kcals: Using Current wt Calories/Kcals/Kg 25-30 Kcals Calculated 2229-0006 Protein: Using Current wt Protein g/k Protein Calculated 52 Fluid: ml 7382-7414 (1ml/kcal) Nutritional Problem 1. Problem Problem altered nutrition related labs Etiology hyperglycemia Signs/Symptoms: glucose 227, POC 335, 174, 288 Malnutrition Alert Is there a minimum of two criteria No selected? Query Text:Check all the applicable criteria. A minimum of two criteria are recommended for diagnosis of either severe or non-severe malnutrition. Malnutrition Related to Morbid Obesity Malnutrition related to morbid obesity No Intervention/Recommendation Comments 1. Continue with [facility] soft chopped ccho 60gm diet as ordered. 2. Monitor PO intake, wt, labs and skin integrity 3. F/U as moderate risk in 3-5 days, PO check 09/25 Expected Outcomes/Goals Expected Outcomes/Goals 1. PO intake to meet at least 75% of nutritional needs. 2. Wt stability, skin to remain intact, labs to approach WNL. Reviewed by DANIELLE Love RD
--- NOTE | 2018-10-19 12:52 | Progress Notes ---
DATE: 10/18/2018 SUBJECTIVE: The patient is currently in the hospital, also for about 8 hours. Apparently was causing some problems, spilled some fluids, water or juice on purpose, fairly well oriented. We are attempting to secure a bed at a senior living facility. Staff noting that she has not been agitated over the past few hours, is calmer. She does note some periods of forgetfulness, but on my exam, she is oriented and answering questions appropriately. No SI. No HI. ASSESSMENT: The patient is gravely disabled, some behavioral disturbances, but no evidence of dangerousness. PLAN: We will continue to monitor. Medications were noted. JOB# [id number]
[2018-10-19 17:01] LABS: ALB/GLOB RATIO 1.4 (1.0-1.8); ALBUMIN 3.3 gm/dL (3.7-5.3); ALKALINE PHOSPHATASE 90 U/L (34-104); ANION GAP 13.2 (7.0-16.0); BILIRUBIN,TOTAL 0.3 mg/dL (0.3-1.0); BUN - UREA NITROGEN 32 mg/dL (7-25); CARBON DIOXIDE 27.2 mEq/L (21.0-31.0); CHLORIDE 99 mEq/L (98-107); CREATININE - SERUM 0.7 mg/dL (0.6-1.2); GLUCOSE 268 mg/dL (70-105); POTASSIUM SERUM 4.4 mEq/L (3.5-5.1); SGOT 16 U/L (13-39); SGPT/ALT 12 U/L (7-52); SODIUM SERUM 135 mEq/L (136-145); TOTAL PROTEIN,SERUM 5.7 gm/dL (6.0-8.3)
--- NOTE | 2018-10-19 23:00 | Discharge Summary ---
DATE OF DISCHARGE: 10/19/2018 PATIENT'S AGE: 73-year-old SEX: Female. PHYSICIAN: Vicente Taylor MD, MPH FINAL DIAGNOSIS: PRIMARY DIAGNOSIS: Schizoaffective disorder, manic episode, severe, with psychotic features. REASON FOR HOSPITALIZATION: The patient was admitted to the hospital because of increased agitation and irritability and also manic behavior and inappropriate behavior. HOSPITAL COURSE: The patient continued to be agitated and inappropriate and entering other patients' rooms, stealing their clothes and also getting into the places that she is not supposed to go to. She also was agitated and angry and needed lots of redirections. The patient was started on different antidepressant medications. Gradually, the patient's affect was brighter and the patient was less agitated and less irritable and the patient was discharged from the hospital. The patient was supposed to go to [facility], but because nonavailability of beds the patient's sister decided to take her home and the patient discharged home. PHYSICAL EXAMINATION OF THE PATIENT: No major medical issues while in the hospital. AFTER DISCHARGE PLANS: The patient discharged from the hospital with plans for followup as an outpatient. EXPECTED OUTCOME AFTER DISCHARGE: Guarded because the patient went home on plans and also questionable if she will comply with taking her medications. [facility]# [id number]
--- NOTE | 2018-10-20 08:02 | Diagnostic Imaging Report ---
Chest x-ray single view History: Infection Comparison: None The heart size enlarged. No focal pulmonary parenchymal processes. No hilar or mediastinal abnormalities. Impression: No acute abnormalities
== END 2018-10-19 19:50 | disposition home or self-care (01) | DRG 885 ==
LOC: ER 12:15 → GERO2 14:32 → GERO 17:45
PROVIDERS: ADMIT Psychiatry & Neurology Psychiatry; ATTEND Psychiatry & Neurology Psychiatry
DX: F25.0 Schizoaffective disorder, bipolar type (principal); E11.65 Type 2 diabetes mellitus with hyperglycemia; F23 Brief psychotic disorder; K57.32 Diverticulitis of large intestine without perforation or abscess without bleeding; F02.81 Dementia in other diseases classified elsewhere, unspecified severity, with behavioral disturbance; G20 Parkinson's disease; E03.9 Hypothyroidism, unspecified; K21.9 Gastro-esophageal reflux disease without esophagitis; R27.0 Ataxia, unspecified; S40.021A Contusion of right upper arm, initial encounter; I10 Essential (primary) hypertension; G35 Multiple sclerosis; Z87.11 Personal history of peptic ulcer disease; Z88.8 Allergy status to other drugs, medicaments and biological substances; Z83.3 Family history of diabetes mellitus; Z82.49 Family history of ischemic heart disease and other diseases of the circulatory system; Z98.51 Tubal ligation status; X58.XXXA Exposure to other specified factors, initial encounter; Y93.89 Activity, other specified; Y92.89 Other specified places as the place of occurrence of the external cause; Y99.8 Other external cause status; Z66 Do not resuscitate
CPT/HCPCS: 36415-UA; 71045-TC; 80048-TC; 80053-TC; 80061-TC; 80164-TC; 81001-TC; 82948-90; 83036-90; 83735-TC; 84443-TC; 85007-TC; 85025-TC; 86592-TC; 93005; A4216; G0410; J1200; J1630; J1815; J2060; Q0162; X3904; Z7610